=== PATIENT | male | born 1970 | race Caucasian/White ===

== ENCOUNTER → 2016-11-16 | Outpatient (CLI) | payer OTHER ==
[2016-11-16 17:06] LABS: Bilirubin, Delta 0.4 mg/dL (0.0-0.2); Total Bilirubin 0.6 mg/dL (0.2-1.3); Total Protein 6.7 g/dL (6.3-8.2)
[2016-11-16 17:11] LABS: Basophils % (A) 0 %; CH 33.4; CHCM 32.3; Eosinophils # (A) 0.7 k/uL (0-0.7); Eosinophils % (A) 8 %; HCT 44.2 % (39.0-53.0); HDW 2.24; Luc # (Auto) 0.18; Luc % (Auto) 2; Lymphocytes # (A) 1.6 k/uL (1.0-4.8); Lymphocytes % (A) 18 %; MCH 33.1 pg (25.0-35.0); MCHC 31.8 g/dL (31.0-37.0); MCV 104.1 fL (80.0-100.0); Macrocytosis Slight; Mean Platelet Volume 7.1; Monocytes # (A) 0.4 k/uL (0-1.0); Monocytes % (A) 4 %; Neutrophils # (A) 6.1 k/uL (1.3-7.7); Neutrophils % (A) 68 %; RBC 4.24 m/uL (4.30-5.90); RDW 14.4 % (11.5-15.5); WBC 8.9 k/uL (3.8-10.6); WBC (Perox) 8.95
== END | disposition home or self-care (01) ==
LOC: LABWHC1 16:33
PROVIDERS: ATTEND Psychiatry & Neurology Psychiatry
DX: F32.9 Major depressive disorder, single episode, unspecified (principal)
CPT/HCPCS: 36415; 80076; 80164; 85025

== ENCOUNTER → 2016-12-07 | Outpatient (CLI) | payer OTHER | END | disposition home or self-care (01) | LOC: LABWHC1 13:04 | PROVIDERS: ATTEND Psychiatry & Neurology Psychiatry | DX: F41.9 Anxiety disorder, unspecified (principal); F31.9 Bipolar disorder, unspecified | CPT/HCPCS: 36415; 80164 ==

== ENCOUNTER → 2018-01-06 | Outpatient (CLI) | payer OTHER ==
--- NOTE | 2018-01-06 09:52 | MR ---
EXAMINATION TYPE: MR lumbar spine wo con DATE OF EXAM: 01/06/2018 COMPARISON: NONE HISTORY: 47-year-old male with low back pain TECHNIQUE: Multiplanar, multisequence images of the lumbar spine were acquired. Findings: Vertebral body heights are preserved and alignment is maintained. Very mild disc desiccation throughout the lumbar spine. Anterior endplate spondylosis is present with mild fatty Modic type II endplate change anteriorly at L2-L3 and L3-L4. No suspicious bone marrow replacement. Conus medullaris is normal. No prevertebral or paravertebral soft tissue abnormality seen. Facet degenerative change lower lumbar spine and mild ligamentum flavum thickening. In addition, there is a component of mild congenital spinal canal stenosis in the lower lumbar spine with AP canal dimension of 1.2 cm. From T12 through L3 levels, no spinal canal or foraminal stenosis. At L3-L4, minimal disc bulging and mild facet degenerative change. No significant spinal canal or william roforaminal stenosis. At L4-L5, mild disc bulging, ligamentum flavum thickening, and mild facet degenerative change right o verall mild congenital spinal canal narrowing without significant neuroforaminal stenosis. At L5-S1, there is diffuse disc bulge with facet arthropathy and ligamentum flavum thickening. Disc m aterial closely approaches and may abut the traversing S1 nerve roots on both sides. Changes result i n mild bilateral neuroforaminal stenosis without significant spinal canal stenosis. IMPRESSION: 1. A component of mild congenital spinal canal stenosis in the lower lumbar spine. There is mild dege nerative disc disease, mild facet arthropathy, and mild ligamentum flavum thickening without canal co mpromise. 2. Disc material at L5-S1 closely approaches and may abut the traversing S1 nerve roots on both sides . 3. Mild bilateral neuroforaminal stenosis at this level.
== END | disposition home or self-care (01) ==
LOC: RADMRIMAIN 07:30
DX: M99.73 Connective tissue and disc stenosis of intervertebral foramina of lumbar region (principal); M51.16 Intervertebral disc disorders with radiculopathy, lumbar region; M46.96 Unspecified inflammatory spondylopathy, lumbar region; M24.28 Disorder of ligament, vertebrae; Q76.49 Other congenital malformations of spine, not associated with scoliosis
CPT/HCPCS: 72148

== ENCOUNTER → 2018-02-08 | Outpatient (CLI) | payer OTHER ==
--- NOTE | 2018-02-08 14:18 | XR ---
EXAMINATION TYPE: XR chest 2V DATE OF EXAM: 02/08/2018 COMPARISON: Prior chest x-ray 03/03/2016 HISTORY: Shortness of breath and cough TECHNIQUE: Frontal and lateral views of the chest are obtained. FINDINGS: There is no focal air space opacity, pleural effusion, or pneumothorax seen. The cardiac silhouette size is within normal limits. Interstitium is mildly prominent. There may be a spinal curv ature. The osseous structures are intact. IMPRESSION: Findings suggest interstitial lung disease. Consider high-resolution chest CT, pulmonary consult.
== END | disposition home or self-care (01) ==
LOC: RADXRMAIN 11:18
PROVIDERS: ATTEND Internal Medicine
DX: R06.02 Shortness of breath (principal)
CPT/HCPCS: 71046

== ENCOUNTER → 2018-03-24 | Outpatient (CLI) | payer OTHER ==
[2018-03-24 14:51] LABS: Blood Urea Nitrogen 10 mg/dL (9-20)
--- NOTE | 2018-03-24 15:28 | CT ---
EXAMINATION TYPE: CT chest w con DATE OF EXAM: 03/24/2018 COMPARISON: NONE HISTORY: Patient complains of difficulty breathing. New diagnosis of COPD. CT DLP: 436.9 mGycm Automated exposure control for dose reduction was used. CONTRAST: CT scan of the chest is performed with IV Contrast, patient injected with 100 mL of Isovue 300. FINDINGS: LUNGS: Moderate to severe upper lobe emphysematous change right greater than left. No evidence for in filtrate. No mass or nodule seen. No pleural effusion identified. MEDIASTINUM: There are no greater than 1 cm hilar or mediastinal lymph nodes. No pericardial effusi on is seen. Thoracic aorta is of normal caliber. The heart is not enlarged. Cystic structure noted a djacent to the right heart border measuring 5.0 x 2.1 cm felt to reflect a pericardial cyst UPPER ABDOMEN: There is evidence of hepatic steatosis. OTHER: No additional significant abnormality is seen. IMPRESSION: 1. Moderate to severe centrilobular emphysema upper lobes right greater than left. 2. Pericardial cyst.
== END | disposition home or self-care (01) ==
LOC: RADCTMAIN 14:17
PROVIDERS: ATTEND Internal Medicine Critical Care Medicine
DX: J43.9 Emphysema, unspecified (principal); I31.8 Other specified diseases of pericardium
CPT/HCPCS: 82565; 84520; 71260; 36415; Q9967

== ENCOUNTER → 2018-07-07 | Outpatient (CLI) | payer OTHER ==
--- NOTE | 2018-07-08 11:01 | MR ---
EXAMINATION TYPE: MR lumbar spine wo con DATE OF EXAM: 07/08/2018 COMPARISON: 01/06/2018 HISTORY: Spondylolisthesis lumbar region TECHNIQUE: Multiplanar, multisequence images of the lumbar spine were acquired. L1-L2: Normal disc appearance without desiccation. No herniation, protrusion or disc bulging. Yvrose sameer are patent bilaterally. L2-L3: Normal disc appearance without desiccation. No herniation, protrusion or disc bulging. Yvrose sameer are patent bilaterally. L3-L4: Minimal posterior disc bulge causes only slight anterior mass effect on the thecal sac. No sig nificant foraminal encroachment. Mild facet arthropathy. L4-L5:Mild disc bulging is present with minimal anterior mass effect on the thecal sac. No significan t foraminal encroachment. Ligamentum flavum thickening is noted. L5-S1: Small posterior disc herniation is present contacting the anterior thecal sac. Circumferential extension of endplate disc complex encroaches on the foramina bilaterally. No significant central st enosis. Mild facet arthropathy. Similar appearance. Lumbar segments are intact. No paraspinal masses are identified. Conus medullaris has a normal appe arance. There is a mild spinal curvature, minimal retrolisthesis L5-S1. There is multilevel spondylos is with endplate discogenic marrow signal change as on prior exam. Short pedicles again noted as on p rior. IMPRESSION: Mild degenerative disc disease, facet arthropathy. Findings similar to prior exam. Congenital spinal canal narrowing. Additional findings above.
== END | disposition home or self-care (01) ==
LOC: RADMRIMAIN 21:00
PROVIDERS: ATTEND Neurological Surgery
DX: M48.061 Spinal stenosis, lumbar region without neurogenic claudication (principal); M51.36 Other intervertebral disc degeneration, lumbar region; M47.816 Spondylosis without myelopathy or radiculopathy, lumbar region; M46.86 Other specified inflammatory spondylopathies, lumbar region
CPT/HCPCS: 72148

== ENCOUNTER → 2018-07-08 | Outpatient (CLI) | payer OTHER ==
--- NOTE | 2018-07-08 15:14 | XR ---
Lumbar spine flexion and extension views HISTORY: Spondylosis 7 views of the lumbar spine Correlation to prior exam 04/04/2014, MR 07/07/2018 Suspect a rudimentary rib at L1 on the left. There is a spinal curvature. Multilevel spondylosis is p resent. No evident spondylolysis area loss of disc height L5-S1. Sclerosis in the posterior elements compatible with facet arthropathy. Minimal retrolisthesis L3 is a stable finding and does not change on flexion and extension views. IMPRESSION: Degenerative disc disease and facet arthropathy, see report of lumbar MRI. No evident sig nificant change in the listhesis on flexion and extension views.
== END | disposition home or self-care (01) ==
LOC: RADXRMAIN 14:15
PROVIDERS: ATTEND Neurological Surgery
DX: M51.36 Other intervertebral disc degeneration, lumbar region (principal); M46.96 Unspecified inflammatory spondylopathy, lumbar region
CPT/HCPCS: 72114

== ENCOUNTER → 2018-10-28 | Outpatient (CLI) | payer OTHER ==
--- NOTE | 2018-10-28 15:58 | XR ---
Lumbar spine with flexion and extension HISTORY: Spondylolisthesis, right-sided pain 7 views of the spine correlated to prior exam 07/08/2018 Exam is stable. There is mild spinal curvature. No evident spondylolysis. Multilevel spondylosis is p resent. Loss of disc height present L5-S1, L3-4. Sclerosis in the posterior elements of the lower lum bar spine compatible with facet arthropathy. Minimal retrolisthesis grade 1 L3-4 is stable measuring 4 mm. IMPRESSION: Stable retrolisthesis L3-4. Degenerative disc disease and facet arthropathy.
== END | disposition home or self-care (01) ==
LOC: RADXRMAIN 14:50
PROVIDERS: ATTEND Neurological Surgery
DX: M43.16 Spondylolisthesis, lumbar region (principal); M51.36 Other intervertebral disc degeneration, lumbar region; M46.96 Unspecified inflammatory spondylopathy, lumbar region
CPT/HCPCS: 72114

== ENCOUNTER → 2019-03-03 | Outpatient (CLI) | payer OTHER ==
--- NOTE | 2019-03-03 13:59 | XR ---
EXAMINATION TYPE: XR chest 2V DATE OF EXAM: 03/03/2019 COMPARISON: Prior chest x-ray 02/08/2018 HISTORY: Cough TECHNIQUE: Frontal and lateral views of the chest are obtained. FINDINGS: There is no focal air space opacity, pleural effusion, or pneumothorax seen. The cardiac silhouette size is within normal limits. Lucency in the right upper lobe suggestive of bullous emphys ematous change. Linear stranding is present within the lungs bilaterally. Aorta is dense. Patient is rotated. There may be an underlying scoliosis. The osseous structures are intact. IMPRESSION: No acute cardiopulmonary process. Emphysema
== END ==
LOC: RADXRMAIN 12:24
PROVIDERS: ATTEND Internal Medicine
DX: J43.9 Emphysema, unspecified (principal)
CPT/HCPCS: 71046

== ENCOUNTER → 2019-07-24 | Outpatient (CLI) | payer OTHER ==
--- NOTE | 2019-07-24 14:49 | CT ---
EXAMINATION TYPE: CT brain wo con DATE OF EXAM: 07/24/2019 COMPARISON: None INDICATION: Syncopal episodes x 2 months. DLP: 995.5 mGycm, Automated exposure control for dose reduction was used. CONTRAST: None CT of the brain is performed utilizing 3 mm thick sections through the posterior fossa and 3 mm thick sections through the remaining calvarium. Study is performed within 24 hours of arrival to the hosp [facility]. No abnormal hyperdensity is present to suggest an acute intracranial hemorrhage. No mass lesion is evident. No acute infarcts are evident. Ventricles and sulci are appropriate for the patient age. There is prominence of the foramen magnum. A small arachnoid cyst may be present posteriorly Paranasal sinuses and mastoid air cells within the [id number]-gm-osaf are clear. IMPRESSIONS: 1. No acute intracranial process
== END | disposition home or self-care (01) ==
LOC: RADCTMAIN 12:23
PROVIDERS: ATTEND Internal Medicine Critical Care Medicine
DX: R55 Syncope and collapse (principal)
CPT/HCPCS: 70450

== ENCOUNTER 2022-05-05 07:13 | Day surgery (SDC) | payer MEDICARE, OTHER ==
[2022-04-30 14:12] VITALS: BMI 33.5
[~2022-05-05 07:13] MED LIST: LACTATED RINGERS 1,000 ML IV SCH; LIDOCAINE 1% (10MG/ML) FOR IV START INTRADERMA PRN
[2022-05-05 07:37] VITALS: TEMP 98.3
[2022-05-05 07:49] LABS: Glucose,Whole Blood 156 mg/dL (70-110)
[2022-05-05] MEDS ORDERED: PROPOFOL 10 MG/ML 20 ML VIAL IV ONE (08:02)
[2022-05-05] MEDS ORDERED: LIDOCAINE 2% INJ 20 MG/ML (2 ML VIAL) ONE (08:02)
--- NOTE | 2022-05-05 08:06 | P.GSHP ---
History of Present Illness H&P Date: 05/05/22 Chief Complaint: gerd 51-year-old male here today for upper endoscopy. Patient with complaints of progressive dysphagia over the last few years. Chronic history of reflux. Takes Pepcid daily. He has not had an EGD before. Past Medical History Past Medical History: COPD, Diabetes Mellitus, GERD/Reflux, Hyperlipidemia, Hypertension, Musculoskeletal Disorder Additional Past Medical History / Comment(s): SCOLIOSIS, HERNIATED DISC, BACK PAIN, STATES OCCASIONAL IRREGULAR HEART BEAT FROM SEROQUEL. History of Any Multi-Drug Resistant Organisms: None Reported Past Surgical History: Hernia Repair Additional Past Surgical History / Comment(s): colonoscopy, right inguinal hernia. Past Anesthesia/Blood Transfusion Reactions: No Reported Reaction Additional Past Anesthesia/Blood Transfusion Reaction / Comment(s): hard to arouse Past Psychological History: Anxiety, Depression Smoking Status: Current every day smoker, Heavy tobacco smoker Past Alcohol Use History: None Reported Additional Past Alcohol Use History / Comment(s): SMOKES 1 1/2 PPD, STARTED SMOKING AGE 12. Past Drug Use History: None Reported - Past Family History Mother Family Medical History: No Reported History Medications and Allergies Home Medications Medication Instructions Recorded Confirmed Type Meloxicam [Mobic] 7.5 mg PO HS 01/02/15 05/05/22 History Hydrocodone/Acetaminophen [[place] 1 tab PO QID PRN 05/06/15 05/05/22 History 10-325] Gabapentin [Neurontin] 800 mg PO TID 03/15/16 05/05/22 History ALPRAZolam [Xanax] 0.25 mg PO BID PRN 04/30/22 05/05/22 History Albuterol Inhaler [Ventolin Hfa 1 puff INHALATION DIRECTED PRN 04/30/22 05/05/22 History Inhaler] Cyclobenzaprine [Flexeril] 10 mg PO HS 04/30/22 05/05/22 History Famotidine [Pepcid] 20 mg PO BID 04/30/22 05/05/22 History Fenofibrate Nanocrystallized 145 mg PO DAILY 04/30/22 05/05/22 History [Fenofibrate] Fluticasone/Umeclidin/Vilanter 1 inhalation INHALATION DAILY 04/30/22 05/05/22 History [Trelegy Ellipta 100-62.5-25] Levothyroxine Sodium [Synthroid] 50 mcg PO DAILY 04/30/22 05/05/22 History Mirtazapine 45 mg PO HS 04/30/22 05/05/22 History Multivitamins, Thera [Multivitamin 1 tab PO DAILY 04/30/22 05/05/22 History (formulary)] QUEtiapine FUMARATE [SEROquel] 200 mg PO HS 04/30/22 05/05/22 History Rosuvastatin Calcium [Crestor] 5 mg PO HS 04/30/22 05/05/22 History lisinopriL [Zestril] 20 mg PO DAILY 04/30/22 05/05/22 History metFORMIN HCL 500 mg PO DAILY 04/30/22 05/05/22 History Allergies Allergy/AdvReac Type Severity Reaction Status Date / Time Penicillins AdvReac Unknown Verified 05/05/22 07:31 Childhood Surgical - Exam Vital Signs Temp Pulse Resp BP Pulse Ox 98.3 F 95 18 117/75 92 L 05/05/22 07:35 05/05/22 07:35 05/05/22 07:35 05/05/22 07:35 05/05/22 07:35 Physical exam: General: Well-developed, well-nourished HEENT: Normocephalic, sclerae nonicteric Abdomen: Nontender, nondistended Extremities: No edema Neuro: Alert and oriented Results - Labs Abnormal Lab Results - Last 24 Hours (Table) 05/05/22 Range/Units 07:48 POC Glucose (mg/dL) 156 H (70-110) mg/dL Assessment and Plan (1) GERD (gastroesophageal reflux disease) Narrative/Plan: Will proceed with upper endoscopy at this time with possible dilation. Risks of bleeding, infection, perforation reviewed. He understands and wishes to proceed. Current Visit: Yes Status: Acute Code(s): K21.9 - GASTRO-ESOPHAGEAL REFLUX DISEASE WITHOUT ESOPHAGITIS SNOMED Code(s): 342320811
--- NOTE | 2022-05-05 08:20 | P.PCN ---
Date of Procedure: 05/05/22 Procedure(s) Performed: Preoperative Dx: GERD, dysphagia Postoperative Dx: Mild distal esophagitis, gastritis Procedure: EGD with Bx and dilation to 15 mm Anesthesia: Sedation Endoscopist: Dr. Kohler Specimens: Antrum, distal esophagus Endoscopic Procedure: The patient was on the endoscopy table in the left decubitus position. The Olympus gastroscope was inserted into the oropharynx and passed under direct visualization to the region of the third portion of the duodenum. From that point the scope was slowly withdrawn inspecting all surfaces carefully. There were no neoplastic inflammatory or polypoid lesions throughout the duodenum. The pylorus was widely patent. The stomach was carefully inspected. There was mild gastritis present. A biopsy of the antrum took place to rule out H. pylori. Retroflexion revealed a normal hiatus. The esophagus was then carefully examined. The patient had a single linear erosion at the distal esophagus measuring 2 cm in length. A biopsy was taken. Prior to that however we did decide to dilate using a 12-15 mm balloon. The balloon was inflated to 12, 13.5, and 15 mm sequentially. The 15 mm balloon did not seem to be very tight. There were no mucosal tears. The remainder the esophagus was examined and appeared normal. The patient was then taken to the recovery room in stable condition per anesthesia guidelines. Recommendations: Await biopsy results. Begin proton pump inhibitor. Follow-up if symptoms persist.
[2022-05-05 08:28] VITALS: RESP 16
[2022-05-05 09:04] VITALS: BP 103/65; PULSE 69
== END 2022-05-05 09:06 | disposition home or self-care (01) ==
LOC: ORWHC2ENDO 07:13
PROVIDERS: ATTEND Surgery
DX: K21.00 Gastro-esophageal reflux disease with esophagitis, without bleeding (principal); K29.50 Unspecified chronic gastritis without bleeding; I10 Essential (primary) hypertension; E11.69 Type 2 diabetes mellitus with other specified complication; E78.5 Hyperlipidemia, unspecified; J44.9 Chronic obstructive pulmonary disease, unspecified; F17.200 Nicotine dependence, unspecified, uncomplicated; E66.9 Obesity, unspecified; Z68.33 Body mass index [BMI] 33.0-33.9, adult; Z88.0 Allergy status to penicillin; Z79.84 Long term (current) use of oral hypoglycemic drugs; Z79.890 Hormone replacement therapy; Z79.899 Other long term (current) drug therapy; F41.9 Anxiety disorder, unspecified; F32.A Depression, unspecified; Z79.1 Long term (current) use of non-steroidal anti-inflammatories (NSAID); Z79.51 Long term (current) use of inhaled steroids
CPT/HCPCS: 88305; 88312; 43239; 43249; J2704; J2001; C1726

== ENCOUNTER → 2022-10-18 | Outpatient (CLI) | payer MEDICARE, OTHER ==
--- NOTE | 2022-10-18 11:03 | MR ---
EXAMINATION TYPE: MR lumbar spine wo con DATE OF EXAM: 10/18/2022 9:21 AM COMPARISON: 07/07/2018. CLINICAL INDICATION:Male, 52 years old with history of [id number]; TECHNIQUE: Multi planar, multi sequence imaging was performed utilizing: T1-weighted, T2-weighted, a nd turbo inversion recovery imaging of the lumbar spine. IV Contrast: None. FINDINGS: Alignment: The lumbar vertebral bodies have preserved heights and alignment. Cord: The conus medullaris and the distal spinal cord appear unremarkable with regards to their signa l intensity and morphology. Bones/Discs: Scattered osteophyte changes throughout the lower lumbar spine. Disc space narrowing at L5-S1. Multilevel degenerative disc disease is noted and most pronounced at the L3-L5. Disc desiccati on at L5-S1. L1-L2: No evidence of significant spinal canal stenosis or neural foraminal stenosis. L2-L3: No evidence of significant spinal canal stenosis or neural foraminal stenosis. L3-L4: No evidence of significant spinal canal stenosis or neural foraminal stenosis. L4-L5: No evidence of significant spinal canal stenosis or neural foraminal stenosis. L5-S1: Disc bulge and facet joint arthropathy result in mild spinal canal and moderate right and mild left neural foraminal stenosis. Other findings: None. IMPRESSION: 1. No definitive evidence of disc herniation or significant spinal canal stenosis. 2. Multilevel disc degeneration with associated osteoarthritic changes worse at L5-S1 with moderate right neural foraminal stenosis. No significant change from prior 2019.
== END | disposition home or self-care (01) ==
LOC: RADMRIMAIN 09:45
PROVIDERS: ATTEND Internal Medicine
DX: M51.37 Other intervertebral disc degeneration, lumbosacral region (principal); M47.817 Spondylosis without myelopathy or radiculopathy, lumbosacral region; M48.061 Spinal stenosis, lumbar region without neurogenic claudication; M99.73 Connective tissue and disc stenosis of intervertebral foramina of lumbar region
CPT/HCPCS: 72148

== ENCOUNTER 2023-03-02 12:48 | Day surgery (SDC) | payer MEDICARE, OTHER ==
[2023-03-02] MEDS ORDERED: ALPRAZolam 0.5 MG TAB PO STA (13:47)
[2023-03-02 13:50] VITALS: PULSE 65; RESP 18; TEMP 97.9
--- NOTE | 2023-03-02 15:47 | US ---
ULTRASOUND GUIDED FNA BILATERAL PAROTID BIOPSY: CLINICAL HISTORY: Bilateral abnormal MRI parotid glands FINDINGS: The procedure was explained to the patient. The risks, complications, benefits and alternatives were discussed and any questions were answered. Informed consent was obtained. Patient was placed supin e on the ultrasound table and prepped and draped in the usual sterile fashion. Utilizing a 25 gauge needle, single pass was made into the right parotid nodule which appear to represent a simple cyst. A pproximate 1 to 2 cc of serous fluid was aspirated with no residual nodule. 2 passes were made into the left parotid nodule with aspiration of approximately 1 cc of thick liquid substance with the near-complete resolution of the nodule. Sample sent to pathology for analysis. Patient was stable throughout the procedure. Pathology is pending. All elements of maximal barrier technique were utilized. IMPRESSION: 1. Successful ultrasound guided FNA bilateral parotid. Note is made to lesion on the right appear to be simple cyst and a more complicated cyst was noted on the left with pathology pending.
[2023-03-02 16:06] VITALS: BP 112/70
== END 2023-03-02 15:00 | disposition home or self-care (01) ==
LOC: RADPROMAIN 12:48
PROVIDERS: ATTEND Otolaryngology
DX: K11.8 Other diseases of salivary glands (principal); K11.6 Mucocele of salivary gland
CPT/HCPCS: 10005; 10006; 88173; 88305

== ENCOUNTER → 2023-03-19 | Outpatient (CLI) | payer MEDICARE, OTHER ==
--- NOTE | 2023-03-20 12:03 | PE ---
EXAMINATION TYPE: PET CT fusion skull to thigh DATE OF EXAM: 03/19/2023 COMPARISON: Low-dose lung screening CT January 11, 2023 HISTORY: Solitary pulmonary nodule, abnormal CT. TECHNIQUE: Following the intravenous administration of 12.3 mCi of F-18 FDG, whole body images are p erformed from the skull base to the midthigh. Images are reviewed on the computer in the coronal, ax ial, and sagittal planes. Reconstructed rotating images are created on independent workstation and r eviewed on the computer. A localization and attenuation correction CT is performed in conjunction w ith the PET scan. Blood glucose level equals 140 SCAN: Initial Scan FINDINGS: SKULL BASE AND NECK: Focus of radiotracer extravasation overlying the anterior right upper extremity axial image 33. No areas of abnormal increased radiotracer uptake. CHEST, MEDIASTINUM, AND HILAR REGION: Moderate to advanced underlying emphysematous changes are redem onstrated. There is masslike consolidation with adjacent thickened linear scarring posterior right up per lobe redemonstrated with masslike consolidation measuring 4.7 x 2.5 cm axial image [address] Some mild hypermetabolic uptake is noted. Max SUV is 3.51 axial image 77. There is 1.9 x 1. 6 cm focal nodule or nodular scarring inferior to this axial image 88, max SUV is 3.08. No additional areas of abnormal hypermetabolic uptake in left lung or the mediastinum or remainder of the thorax. Slightly enlarged right tracheobronchial lymph node axial image 84 shows no abnormal hyp ermetabolic uptake. ABDOMEN AND PELVIS: No hypermetabolic adrenal masses. Normal excretion. Mild uptake left lateral thig h muscle could reflect inflammatory etiology. No suspicious abnormal hypermetabolic uptake. OSSEOUS STRUCTURES: No abnormal hypermetabolic uptake OTHER CT: There is a circumscribed low dense 5.0 x 1.9 cm lesion abutting the right pericardium presu med benign cystic lesion redemonstrated. Vacuum disc phenomenon lumbosacral junction. IMPRESSION: Post inflammatory findings favored but neoplasm cannot be excluded. At minimum short-term CT and/or PET CT follow-up in 3-6 months time is advised to reassess if more aggressive workup and/o r treatment is not undertaken.
== END | disposition home or self-care (01) ==
LOC: RADPETMAIN 06:27
PROVIDERS: ATTEND Internal Medicine Critical Care Medicine
DX: R91.1 Solitary pulmonary nodule (principal)
CPT/HCPCS: 78815; A9552

== ENCOUNTER 2023-04-22 23:59 | Observation (INO) | payer MEDICARE, OTHER ==
[2023-04-23 01:31] LABS: ALT 16 U/L (4-49); AST 21 U/L (17-59); African American GFR (CKD) 62 (>60 ml/min/1.73 sqM); Albumin 4.1 g/dL (3.5-5.0); Alkaline Phosphatase 50 U/L (38-126); Anion Gap 12 mmol/L; Blood Urea Nitrogen 21 mg/dL (9-20); Calcium 9.1 mg/dL (8.4-10.2); Carbon Dioxide 20 mmol/L (22-30); Chloride 102 mmol/L (98-107); Glucose 186 mg/dL (74-99); Non-African American GFR(CKD) 54 (>60 ml/min/1.73 sqM); Potassium 4.9 mmol/L (3.5-5.1); Sodium 134 mmol/L (137-145); Total Bilirubin 0.5 mg/dL (0.2-1.3); Total Protein 6.8 g/dL (6.3-8.2)
[2023-04-23 01:34] LABS: Anisocytosis Slight; Basophils % (A) 0 %; Eosinophils # (A) 0.3 k/uL (0-0.7); Eosinophils % (A) 4 %; HCT 34.1 % (39.0-53.0); HGB 11.4 gm/dL (13.0-17.5); Lymphocytes # (A) 1.3 k/uL (1.0-4.8); Lymphocytes % (A) 19 %; MCH 33.6 pg (25.0-35.0); MCHC 33.4 g/dL (31.0-37.0); MCV 100.4 fL (80.0-100.0); Macrocytosis Slight; Mean Platelet Volume 7.7; Monocytes # (A) 0.4 k/uL (0-1.0); Monocytes % (A) 6 %; Neutrophils % (A) 70 %; Platelet Count 379 k/uL (150-450); RDW 16.3 % (11.5-15.5); WBC 7.2 k/uL (3.8-10.6)
[2023-04-23 01:48] LABS: Partial Thromboplastin Time 26.2 sec (22.0-30.0); Prothrombin Time 10.2 sec (9.0-12.0)
--- NOTE | 2023-04-23 02:14 | XR ---
EXAM: XR Chest, 2 Views CLINICAL HISTORY: ITS.REASON XR Reason: dysrhythmia TECHNIQUE: Frontal and lateral views of the chest. COMPARISON: 07/25/2020 FINDINGS: Lungs: Emphysema with chronic scarring in the right lung apex. Pleural space: Unremarkable. No pneumothorax. No pleural effusions. Heart: Unremarkable. No cardiomegaly. Mediastinum: Unremarkable. Bones/joints: No acute osseous abnormalities. IMPRESSION: Emphysema with chronic scarring in the right lung apex.
[2023-04-23] MEDS ORDERED: methylPREDNISolone SOD SUCCI 125 MG/2 ML VIAL IV STA (02:39)
[2023-04-23] MEDS ORDERED: IPRATROPIUM-ALBUTEROL 3 ML NEB INHALATION STA (02:39)
--- NOTE | 2023-04-23 03:42 | CT ---
EXAM: CT Angiography Chest With Intravenous Contrast CLINICAL HISTORY: ITS.REASON CT Reason: chest pain, tachycardia, exertional dyspnea TECHNIQUE: Axial computed tomographic angiography images of the chest with intravenous contrast. CTDI is 46.58 mGy and DLP is 959.3 mGy-cm. This CT exam was performed using one or more of the following dose reduction techniques: automated exposure control, adjustment of the mA and/or kV according to patient size, and/or use of iterative reconstruction technique. MIP reconstructed images were created and reviewed. COMPARISON: No relevant prior studies available. FINDINGS: Pulmonary arteries: Unremarkable. No CT evidence of pulmonary embolism. Aorta: No acute findings. No thoracic aortic aneurysm. Lungs: 4.5 cm cavitary mass within the posterior right upper lobe. Severe centrilobular emphysema. Pleural space: Unremarkable. No significant effusion. No pneumothorax. Heart: Unremarkable. No cardiomegaly. No significant pericardial effusion. No evidence of RV dysfunction. Mediastinum: Mediastinal lymphadenopathy is present as follows: Left intralobar-1.2 cm, right hilar-2.2 cm, left intralobar-1.1 cm. Bones/joints: No acute fracture. No dislocation. Soft tissues: Unremarkable. Lymph nodes: Unremarkable. No enlarged lymph nodes. IMPRESSION: 1. No CT evidence of pulmonary embolism. 2. 4.5 cm cavitary mass within the posterior right upper lobe. 3. Mild mediastinal lymphadenopathy.
--- NOTE | 2023-04-23 04:15 | ED ---
Arrhythmia/Palpitations HPI - General Chief Complaint: Arrhythmia/Palpitations Stated Complaint: Rapid Heart Rate, Difficulty Breathing Source: patient Mode of arrival: ambulatory Limitations: no limitations - History of Present Illness Initial Comments: 52-year-old male with past medical history of COPD, diabetes, hypertension who presents to the emergency department with rapid heart rate and shortness of breath. States that for the past couple of days he has had some chest pain. Describes it as a pressure sensation across the anterior part of his chest. He has been increasingly short of breath and has been wheezing. States that anytime he exerts himself he becomes short of breath. Denies cough. No fevers. No sick contacts. He is under the care of Dr. Chaves. States he's been worked up for possible cancer. He denies active chest pain. No lower externally swelling. No history of DVT or PE. Has never had a cardiac workup. No history of heart failure. He does not take any antibiotics or steroids. No other alleviating, precipitating or modifying factors - Related Data Home Medications Medication Instructions Recorded Confirmed Meloxicam [Mobic] 7.5 mg PO HS 01/02/15 04/23/23 Hydrocodone/Acetaminophen [[place] 1 tab PO QID PRN 05/06/15 04/23/23 10-325] Gabapentin [Neurontin] 800 mg PO TID 03/15/16 04/23/23 ALPRAZolam [Xanax] 0.25 mg PO BID PRN 04/30/22 04/23/23 Albuterol Inhaler [Ventolin Hfa 1 puff INHALATION RT-Q4H PRN 04/30/22 04/23/23 Inhaler] Cyclobenzaprine [Flexeril] 10 mg PO HS 04/30/22 04/23/23 Famotidine [Pepcid] 20 mg PO BID 04/30/22 04/23/23 Fenofibrate Nanocrystallized 145 mg PO DAILY 04/30/22 04/23/23 [Fenofibrate] Fluticasone/Umeclidin/Vilanter 1 puff INHALATION RT-DAILY 04/30/22 04/23/23 [Trelegy Ellipta 100-62.5-25] Levothyroxine Sodium [Synthroid] 50 mcg PO DAILY 04/30/22 04/23/23 Mirtazapine 45 mg PO HS 04/30/22 04/23/23 Multivitamins, Thera [Multivitamin 1 tab PO DAILY 04/30/22 04/23/23 (formulary)] QUEtiapine FUMARATE [SEROquel] 200 mg PO HS 04/30/22 04/23/23 Rosuvastatin Calcium [Crestor] 5 mg PO HS 04/30/22 04/23/23 lisinopriL [Zestril] 20 mg PO DAILY 04/30/22 04/23/23 metFORMIN HCL 500 mg PO DAILY 04/30/22 04/23/23 Pioglitazone [Actos] 30 mg PO DAILY 02/18/23 04/23/23 Ergocalciferol [Vitamin D2 (1250 1,250 mcg PO ABLERTO 04/23/23 04/23/23 Mcg = 13462 Iu)] Mupirocin 2% Oint [Bactroban 2% 1 applic TOPICAL DAILY 04/23/23 04/23/23 Oint] Previous Rx's Medication Instructions Recorded Omeprazole [PriLOSEC] 40 mg PO -MARILYNKFST #90 cap 05/05/22 Allergies Allergy/AdvReac Type Severity Reaction Status Date / Time Penicillins AdvReac Unknown Verified 04/23/23 07:07 Childhood Review of Systems ROS Statement: Those systems with pertinent positive or pertinent negative responses have been documented in the HPI. ROS Other: All systems not noted in ROS Statement are negative. Past Medical History Past Medical History: COPD, Diabetes Mellitus, GERD/Reflux, Hyperlipidemia, Hypertension, Musculoskeletal Disorder Additional Past Medical History / Comment(s): SCOLIOSIS, HERNIATED DISC, BACK PAIN, STATES OCCASIONAL IRREGULAR HEART BEAT FROM SEROQUEL. History of Any Multi-Drug Resistant Organisms: None Reported Past Surgical History: Hernia Repair Additional Past Surgical History / Comment(s): colonoscopy, right inguinal herni a. Past Anesthesia/Blood Transfusion Reactions: No Reported Reaction Additional Past Anesthesia/Blood Transfusion Reaction / Comment(s): hard to arouse Past Psychological History: Anxiety, Depression Smoking Status: Current every day smoker, Heavy tobacco smoker Past Alcohol Use History: None Reported Past Drug Use History: None Reported - Past Family History Mother Family Medical History: No Reported History General Exam Limitations: no limitations Course Vital Signs 04/23/23 04/23/23 04/23/23 00:01 01:17 03:06 Temperature 97.5 F L Pulse Rate 115 H 98 87 Respiratory 26 H 16 Rate Blood Pressure 122/75 115/64 O2 Sat by Pulse 96 95 Oximetry 04/23/23 04/23/23 04/23/23 03:14 04:00 06:28 Temperature 98.1 F Pulse Rate 88 86 78 Respiratory 16 16 Rate Blood Pressure 112/61 110/64 O2 Sat by Pulse 96 96 Oximetry Medical Decision Making - Medical Decision Making Was pt. sent in by a medical professional or institution (ABHIJIT Aguirre, REGULATORY PRODUCT MANAGER, urgent care, hospital, or group home...) When possible be specific @ -[No] Did you speak to anyone other than the patient for history (EMS, parent, family, police, friend...)? What history was obtained from this source @ -[No] Did you review nursing and triage notes (agree or disagree)? Why? @ -[I reviewed and agree with nursing and triage notes] Were old charts reviewed (outside hosp., previous admission, EMS record, old EKG, old radiological studies, urgent care reports/EKG's, group home records)? Report findings @ -[No old charts were reviewed] Differential Diagnosis (chest pain, altered mental status, abdominal pain women, abdominal pain men, vaginal bleeding, weakness, fever, dyspnea, syncope, headache, dizziness, GI bleed, back pain, seizure, CVA, palpatations, mental health, musculoskeletal)? @ -[not applicable] EKG interpreted by me (3pts min.). @ -Yes and demonstrates sinus tachycardia with a rate of 108. IL interval 127. QRS 98. QTC of 382. No acute ST segment elevations or depressions X-rays interpreted by me (1pt min.). @ -[None done] CT interpreted by me (1pt min.). @ -[None done] U/S interpreted by me (1pt. min.). @ -[None done] What testing was considered but not performed or refused? (CT, X-rays, U/S, labs)? Why? @ -[None] What meds were considered but not given or refused? Why? @ -[None] Did you discuss the management of the patient with other professionals (professionals i.e. ABHIJIT Aguirre, REGULATORY PRODUCT MANAGER, lab, RT, psych nurse, long term care social worker, cord tire builder, teacher, building drafting officer, cyanide case hardener)? Give summary @ -[No] Was smoking cessation discussed for >3mins.? @ -[No] Was critical care preformed (if so, how long)? @ -[No] Were there social determinants of health that impacted care today? How? (Homelessness, low income, unemployed, alcoholism, drug addiction, transportatio n, low edu. Level, literacy, decrease access to med. care, [place] [facility], rehab)? @ -[No] Was there de-escalation of care discussed even if they declined (Discuss DNR or withdrawal of care, Hospice)? DNR status @ -[No] What co-morbidities impacted this encounter? (DM, HTN, Smoking, COPD, CAD, Cancer, CVA, ARF, Chemo, Hep., AIDS, mental health diagnosis, sleep apnea, morbid obesity)? @ -[None] Was patient admitted / discharged? Hospital course, mention meds given and route, prescriptions, significant lab abnormalities, going to OR and other pertinent info. @ -Upon arrival patient is placed into room 2. A thorough history and physical exam was performed. IV access is established and laboratory studies are conducted. D-dimer is elevated at 0.65. Patient is diffusely wheezy and therefore given a breathing treatment. CT of the chest is performed which demonstrates a large spiculated mass measuring 4.5 cm. There is mediastinal lymphadenopathy. Results are discussed the patient. Did recommend admission for pulmonology and cardiology consultation. Patient was agreeable to this. Spoke with Dr. Dotson who agreed to admit the patient. Undiagnosed new problem with uncertain prognosis? @ -[No] Drug Therapy requiring intensive monitoring for toxicity (Heparin, Nitro, Insulin, Cardizem)? @ -[No] Were any procedures done? @ -[No] Diagnosis/symptom? @ -[default] Acute, or Chronic, or Acute on Chronic? @ -[default] Uncomplicated (without systemic symptoms) or Complicated (systemic symptoms)? @ -[default] Side effects of treatment? @ -[No] Exacerbation, Progression, or Severe Exacerbation? @ -[No] Poses a threat to life or bodily function? How? (Chest pain, USA, AL, pneumonia, PE, COPD, DKA, ARF, appy, cholecystitis, CVA, Diverticulitis, Homicidal, Suicidal, threat to staff... and all critical care pts) @ -[No] - Lab Data Result diagrams: 04/23/23 00:08 04/23/23 00:08 Lab Results 04/23/23 04/23/23 04/23/23 Range/Units 00:08 00:08 00:08 WBC 7.2 (3.8-10.6) k/uL RBC 3.40 L (4.30-5.90) m/uL Hgb 11.4 L (13.0-17.5) gm/dL Hct 34.1 L (39.0-53.0) % MCV 100.4 H (80.0-100.0) fL MCH 33.6 (25.0-35.0) pg MCHC 33.4 (31.0-37.0) g/dL RDW 16.3 H (11.5-15.5) % Plt Count 379 (150-450) k/uL MPV 7.7 Neutrophils % 70 % Lymphocytes % 19 % Monocytes % 6 % Eosinophils % 4 % Basophils % 0 % Neutrophils # 5.0 (1.3-7.7) k/uL Lymphocytes # 1.3 (1.0-4.8) k/uL Monocytes # 0.4 (0-1.0) k/uL Eosinophils # 0.3 (0-0.7) k/uL Basophils # 0.0 (0-0.2) k/uL Anisocytosis Slight Macrocytosis Slight PT 10.2 (9.0-12.0) sec INR 1.0 (<1.2) APTT 26.2 (22.0-30.0) sec D-Dimer 0.65 H (<0.60) mg/L FEU Sodium 134 L (137-145) mmol/L Potassium 4.9 (3.5-5.1) mmol/L Chloride 102 (98-107) mmol/L Carbon Dioxide 20 L (22-30) mmol/L Anion Gap 12 mmol/L BUN 21 H (9-20) mg/dL Creatinine 1.46 H (0.66-1.25) mg/dL Est GFR (CKD-EPI)AfAm 62 (>60 ml/min/1.73 sqM) Est GFR (CKD-EPI)NonAf 54 (>60 ml/min/1.73 sqM) Glucose 186 H (74-99) mg/dL Calcium 9.1 (8.4-10.2) mg/dL Magnesium 2.0 (1.6-2.3) mg/dL Total Bilirubin 0.5 (0.2-1.3) mg/dL AST 21 (17-59) U/L ALT 16 (4-49) U/L Alkaline Phosphatase 50 (38-126) U/L Troponin I (0.000-0.034) ng/mL NT-Pro-B Natriuret Pep pg/mL Total Protein 6.8 (6.3-8.2) g/dL Albumin 4.1 (3.5-5.0) g/dL TSH 0.907 (0.465-4.680) mIU/L 04/23/23 04/23/23 Range/Units 00:08 00:08 WBC (3.8-10.6) k/uL RBC (4.30-5.90) m/uL Hgb (13.0-17.5) gm/dL Hct (39.0-53.0) % MCV (80.0-100.0) fL MCH (25.0-35.0) pg MCHC (31.0-37.0) g/dL RDW (11.5-15.5) % Plt Count (150-450) k/uL MPV Neutrophils % % Lymphocytes % % Monocytes % % Eosinophils % % Basophils % % Neutrophils # (1.3-7.7) k/uL Lymphocytes # (1.0-4.8) k/uL Monocytes # (0-1.0) k/uL Eosinophils # (0-0.7) k/uL Basophils # (0-0.2) k/uL Anisocytosis Macrocytosis PT (9.0-12.0) sec INR (<1.2) APTT (22.0-30.0) sec D-Dimer (<0.60) mg/L FEU Sodium (137-145) mmol/L Potassium (3.5-5.1) mmol/L Chloride (98-107) mmol/L Carbon Dioxide (22-30) mmol/L Anion Gap mmol/L BUN (9-20) mg/dL Creatinine (0.66-1.25) mg/dL Est GFR (CKD-EPI)AfAm (>60 ml/min/1.73 sqM) Est GFR (CKD-EPI)NonAf (>60 ml/min/1.73 sqM) Glucose (74-99) mg/dL Calcium (8.4-10.2) mg/dL Magnesium (1.6-2.3) mg/dL Total Bilirubin (0.2-1.3) mg/dL AST (17-59) U/L ALT (4-49) U/L Alkaline Phosphatase (38-126) U/L Troponin I <0.012 (0.000-0.034) ng/mL NT-Pro-B Natriuret Pep <20 pg/mL Total Protein (6.3-8.2) g/dL Albumin (3.5-5.0) g/dL TSH (0.465-4.680) mIU/L Disposition Clinical Impression: Tachycardia, Chest pain, Shortness of breath, COPD exacerbation, Lung mass Disposition: ADMITTED IP TO THIS [facility] Condition: Fair Is patient prescribed a controlled substance at d/c from ED?: No Time of Disposition: 03:45 Decision to Admit Reason: Admit from EC Decision Date: 04/23/23 Decision Time: 03:45
[2023-04-23] MEDS ORDERED: NALOXONE 0.4 MG/ML 1 ML VIAL IV PRN (04:52)
[2023-04-23] MEDS ORDERED: DOBUTamine DRIP for NUC MED 500 MG in DEXTROSE/WATER 1 250ML.BAG IV PRN (07:44)
[2023-04-23] MEDS: IPRATROPIUM-ALBUTEROL 3 ML NEB INHALATION SCH ×5 (07:48→23:42)
[2023-04-23] MEDS: methylPREDNISolone SOD SUCCI 40 MG/ML 1 ML VIAL IV SCH ×2 (08:40→16:28)
[2023-04-23] MEDS ORDERED: ALPRAZolam 0.25 MG TAB PO PRN (08:59)
[2023-04-23] MEDS ORDERED: ALBUTEROL NEBULIZED 2.5 MG/3 ML INHALATION PRN (08:59)
[2023-04-23] MEDS ORDERED: FENOFIBRATE 160 MG TAB PO SCH (09:00)
--- NOTE | 2023-04-23 09:12 | P.CRDCN ---
History of Present Illness History of present illness: HISTORY OF PRESENT ILLNESS: This is a 52-year-old male with a past medical history significant for COPD, diabetes, hypertension, hyperlipidemia, anxiety, depression, nicotine dependence, and lung mass. Patient does not follow with a civil designer. We have been asked to see the patient in consultation for chest pain. Patient examined at the bedside. Patient presented to the hospital with a chief complaint of shortness of breath and chest pain. Patient states he has been having intermittent chest pain over the past few days. He describes the pain as a pressure type sensation. He denied any radiation of the pain. He also reports he has been feeling short of breath. He denies any previous history of coronary artery disease. * EKG reveals sinus tachycardia with a heart rate of 108. No signs of acute ischemia * Chest xray emphysema with chronic scarring in the right lung apex. * Chest CTA: No evidence for pulmonary embolism. 4.5 cm cavitary mass within the posterior right upper lobe. Mild mediastinal lymphadenopathy. * Laboratory data: WBC 7.2. Hemoglobin 11.4. Platelet count 379. D-dimer 0.65. Sodium 134. Potassium 4.9. BUN 21. Creatinine 1.46. Troponin negative 2. TSH 0.907. * Current home cardiac medications include lisinopril 20 mg daily and Crestor 5 mg at night REVIEW OF SYSTEMS: At the time of my exam: CONSTITUTIONAL: Denies fever or chills. HEENT: Denies blurred vision, vision changes, or eye pain. Denies hemoptysis CARDIOVASCULAR: Denies chest pain. Denies orthopnea. Denies PND. Denies pal pitations RESPIRATORY: Denies shortness of breath. GASTROINTESTINAL: Denies abdominal pain. Denies nausea or vomiting. HEMATOLOGIC: Denies bleeding disorders. GENITOURINARY: Denies any blood in urine. SKIN: Denies pruitis. Denies rash. PHYSICAL EXAM: VITAL SIGNS: Reviewed. GENERAL: Well-developed in no acute distress. HEENT: Head is normocephalic. Pupils are equal, round. Sclerae anicteric. Mucous membranes of the mouth are moist. Neck supple. No JVD or thyromegaly LUNGS: Respirations even and unlabored. Lungs essentially clear to auscultation bilaterally. HEART: Regular rate and rhythm. S1 and S2 heard. ABDOMEN: Soft. Nondistended. Nontender. EXTREMITIES: Normal range of motion. No clubbing or cyanosis. Peripheral pulses intact. No lower extremity edema NEUROLOGIC: Awake and alert. Oriented x 3. ASSESSMENT: Shortness of breath Chest pain, troponins negative 2 Right upper lobe lung mass Mediastinal lymphadenopathy Hypertension Hyperlipidemia COPD Diabetes Anxiety Depression Nicotine dependence PLAN: An acute coronary event has been ruled out Obtain 2-D echo to assess cardiac structure and function Resume home cardiac medications Patient to undergo dobutamine stress echo today If negative, patient may be discharged home today from a cardiac standpoint Nurse practitioner note has been reviewed by physician. Signing provider agrees with the documented findings, assessment, and plan of care. Past Medical History Past Medical History: COPD, Diabetes Mellitus, GERD/Reflux, Hyperlipidemia, Hypertension, Musculoskeletal Disorder Additional Past Medical History / Comment(s): SCOLIOSIS, HERNIATED DISC, BACK PAIN, STATES OCCASIONAL IRREGULAR HEART BEAT FROM SEROQUEL. History of Any Multi-Drug Resistant Organisms: None Reported Past Surgical History: Hernia Repair Additional Past Surgical History / Comment(s): colonoscopy, right inguinal hernia. Past Anesthesia/Blood Transfusion Reactions: No Reported Reaction Additional Past Anesthesia/Blood Transfusion Reaction / Comment(s): hard to arouse Past Psychological History: Anxiety, Depression Smoking Status: Current every day smoker, Heavy tobacco smoker Past Alcohol Use History: None Reported Past Drug Use History: None Reported - Past Family History Mother Family Medical History: No Reported History Medications and Allergies Home Medications Medication Instructions Recorded Confirmed Type Meloxicam [Mobic] 7.5 mg PO HS 01/02/15 04/23/23 History Hydrocodone/Acetaminophen [[place] 1 tab PO QID PRN 05/06/15 04/23/23 History 10-325] Gabapentin [Neurontin] 800 mg PO TID 03/15/16 04/23/23 History ALPRAZolam [Xanax] 0.25 mg PO BID PRN 04/30/22 04/23/23 History Albuterol Inhaler [Ventolin Hfa 1 puff INHALATION RT-Q4H PRN 04/30/22 04/23/23 History Inhaler] Cyclobenzaprine [Flexeril] 10 mg PO HS 04/30/22 04/23/23 History Famotidine [Pepcid] 20 mg PO BID 04/30/22 04/23/23 History Fenofibrate Nanocrystallized 145 mg PO DAILY 04/30/22 04/23/23 History [Fenofibrate] Fluticasone/Umeclidin/Vilanter 1 puff INHALATION RT-DAILY 04/30/22 04/23/23 History [Trelegy Ellipta 100-62.5-25] Levothyroxine Sodium [Synthroid] 50 mcg PO DAILY 04/30/22 04/23/23 History Mirtazapine 45 mg PO HS 04/30/22 04/23/23 History Multivitamins, Thera [Multivitamin 1 tab PO DAILY 04/30/22 04/23/23 History (formulary)] QUEtiapine FUMARATE [SEROquel] 200 mg PO HS 04/30/22 04/23/23 History Rosuvastatin Calcium [Crestor] 5 mg PO HS 04/30/22 04/23/23 History lisinopriL [Zestril] 20 mg PO DAILY 04/30/22 04/23/23 History metFORMIN HCL 500 mg PO DAILY 04/30/22 04/23/23 History Omeprazole [PriLOSEC] 40 mg PO AC-BRKFST #90 cap 05/05/22 04/23/23 Rx Pioglitazone [Actos] 30 mg PO DAILY 02/18/23 04/23/23 History Ergocalciferol [Vitamin D2 (1250 1,250 mcg PO ALBERTO 04/23/23 04/23/23 History Mcg = 55982 Iu)] Mupirocin 2% Oint [Bactroban 2% 1 applic TOPICAL DAILY 04/23/23 04/23/23 History Oint] Allergies Allergy/AdvReac Type Severity Reaction Status Date / Time Penicillins AdvReac Unknown Verified 04/23/23 07:07 Childhood Physical Exam Vitals: Vital Signs Temp Pulse Pulse Resp BP BP Pulse Ox 04/23/23 07:59 108 H 04/23/23 07:49 106 H 94 L 04/23/23 07:28 97.5 F L 91 18 117/69 92 L 04/23/23 06:28 98.1 F 78 16 110/64 96 04/23/23 04:00 86 16 112/61 96 04/23/23 03:14 88 04/23/23 03:06 87 04/23/23 01:17 98 16 115/64 95 04/23/23 00:01 97.5 F L 115 H 26 H 122/75 96 Intake and Output 04/22/23 04/23/23 04/23/23 22:59 06:59 14:59 Other: # Voids 1 Weight 120.202 kg Results 04/23/23 00:08 04/23/23 00:08 Cardiac Enzymes 04/23/23 04/23/23 04/23/23 Range/Units 00:08 00:08 06:54 AST 21 (17-59) U/L Troponin I <0.012 <0.012 (0.000-0.034) ng/mL Coagulation 04/23/23 Range/Units 00:08 PT 10.2 (9.0-12.0) sec APTT 26.2 (22.0-30.0) sec CBC 04/23/23 Range/Units 00:08 WBC 7.2 (3.8-10.6) k/uL RBC 3.40 L (4.30-5.90) m/uL Hgb 11.4 L (13.0-17.5) gm/dL Hct 34.1 L (39.0-53.0) % Plt Count 379 (150-450) k/uL Comprehensive Metabolic Panel 04/23/23 Range/Units 00:08 Sodium 134 L (137-145) mmol/L Potassium 4.9 (3.5-5.1) mmol/L Chloride 102 (98-107) mmol/L Carbon Dioxide 20 L (22-30) mmol/L BUN 21 H (9-20) mg/dL Creatinine 1.46 H (0.66-1.25) mg/dL Glucose 186 H (74-99) mg/dL Calcium 9.1 (8.4-10.2) mg/dL AST 21 (17-59) U/L ALT 16 (4-49) U/L Alkaline Phosphatase 50 (38-126) U/L Total Protein 6.8 (6.3-8.2) g/dL Albumin 4.1 (3.5-5.0) g/dL Current Medications Generic Name Dose Route Start Last Admin Trade Name Freq PRN Reason Stop Dose Admin Hydrocodone Bitart/Acetaminophen 1 each 04/23/23 08:59 Hydrocodone/Apap 10-325mg 1 Each Tab PO QID PRN Pain Albuterol Sulfate 2.5 mg 04/23/23 08:59 Albuterol Nebulized 2.5 Mg/3 Ml INHALATION RT-Q4H PRN Shortness Of Breath Albuterol/Ipratropium 3 ml 04/23/23 08:00 04/23/23 07:48 Ipratropium-Albuterol 3 Ml Neb INHALATION 3 ml RT-Q4H RICHARD Administration Alprazolam 0.25 mg 04/23/23 08:59 Alprazolam 0.25 Mg Tab PO BID PRN Anxiety Cyclobenzaprine HCl 10 mg 04/23/23 21:00 Cyclobenzaprine 10 Mg Tab PO HS [facility] Ergocalciferol 1,250 mcg 04/25/23 09:00 Ergocalciferol 1,250 Mcg (50,000 Iu) Capsule PO ALBERTO [facility] Famotidine 20 mg 04/23/23 09:00 Famotidine 20 Mg Tab PO BID RICHARD Fenofibrate 160 mg 04/23/23 10:00 Fenofibrate 160 Mg Tab PO DAILY [facility] Dobutamine HCl/Dextrose 500 mg 250 mls @ 36.061 mls/hr 04/23/23 07:44 / IV Solution IV 04/23/23 11:44 .Q6H56M PRN Per Protocol Protocol 10 MCG/KG/MIN Levothyroxine Sodium 50 mcg 04/23/23 09:00 Levothyroxine 50 Mcg Tab PO DAILY [facility] Lisinopril 20 mg 04/23/23 09:00 Lisinopril 20 Mg Tab PO DAILY [facility] Meloxicam 7.5 mg 04/23/23 21:00 Meloxicam 7.5 Mg Tab PO HS [facility] Methylprednisolone Sodium Succinate 40 mg 04/23/23 08:00 04/23/23 08:40 Methylprednisolone Sod Succi 40 Mg/Ml 1 Ml Vial IV 40 mg Q8HR RICHARD Administration Naloxone HCl 0.2 mg 04/23/23 04:52 Naloxone 0.4 Mg/Ml 1 Ml Vial IV Q2M PRN Opioid Reversal Non-Formulary Medication 1 puff 04/24/23 08:00 Fluticasone/Umeclidin/Vilanter [Trelegy Ellipta 100-62.5-25] INHALATION RT-DAILY [facility] Non-Formulary Medication 800 mg 04/23/23 09:00 Gabapentin [Neurontin] PO TID RICHARD Intake and Output 04/22/23 04/23/23 04/23/23 22:59 06:59 14:59 Other: # Voids 1 Weight 120.202 kg 04/23/23 00:08 04/23/23 00:08
[2023-04-23] MEDS ORDERED: DOBUTamine DRIP for NUC MED 500 MG/250 ML BAG IV ONE (09:30)
--- NOTE | 2023-04-23 10:25 | P.HPIM ---
History of Present Illness H&P Date: 04/23/23 Chief Complaint: Palpitation chest pain This is a 52-year-old male patient who presented here with concerns of palpitations and chest pain. Patient has been following with Dr. Camacho for possible workup with lung cancer. Patient has reported increasing shortness of breath.. Patient reports gross palpitations or chest pain at nighttime. Has been occurring over the past few days medical history of diabetes mellitus, hypertension and diabetes mellitus. CT of the chest performed showing no evidence of pulmonary embolism 0.5 cm cavity mass with posterior right upper lo be. Mild mediastinal lymphadenopathy,. Troponins negative 3. Creatinine slightly elevated at 1.46 this does appear patient's baseline bun 21. At this time cardiology and pulmonary services have been consulted. Stress test ordered per cardiology. Patient is resting comfortably in bed denies any chest pain at this time. Denies nausea vomiting or diarrhea. Denies any urinary burning or frequency Review of Systems please refer to HPI otherwise unremarkable Past Medical History Past Medical History: COPD, Diabetes Mellitus, GERD/Reflux, Hyperlipidemia, Hypertension, Musculoskeletal Disorder Additional Past Medical History / Comment(s): SCOLIOSIS, HERNIATED DISC, BACK PAIN, STATES OCCASIONAL IRREGULAR HEART BEAT FROM SEROQUEL. History of Any Multi-Drug Resistant Organisms: None Reported Past Surgical History: Hernia Repair Additional Past Surgical History / Comment(s): colonoscopy, right inguinal hernia. Past Anesthesia/Blood Transfusion Reactions: No Reported Reaction Additional Past Anesthesia/Blood Transfusion Reaction / Comment(s): hard to arouse Past Psychological History: Anxiety, Depression Smoking Status: Current every day smoker, Heavy tobacco smoker Past Alcohol Use History: None Reported Past Drug Use History: None Reported - Past Family History Mother Family Medical History: No Reported History Medications and Allergies Home Medications Medication Instructions Recorded Confirmed Type Meloxicam [Mobic] 7.5 mg PO HS 01/02/15 04/23/23 History Hydrocodone/Acetaminophen [[place] 1 tab PO QID PRN 05/06/15 04/23/23 History 10-325] Gabapentin [Neurontin] 800 mg PO TID 03/15/16 04/23/23 History ALPRAZolam [Xanax] 0.25 mg PO BID PRN 04/30/22 04/23/23 History Albuterol Inhaler [Ventolin Hfa 1 puff INHALATION RT-Q4H PRN 04/30/22 04/23/23 History Inhaler] Cyclobenzaprine [Flexeril] 10 mg PO HS 04/30/22 04/23/23 History Famotidine [Pepcid] 20 mg PO BID 04/30/22 04/23/23 History Fenofibrate Nanocrystallized 145 mg PO DAILY 04/30/22 04/23/23 History [Fenofibrate] Fluticasone/Umeclidin/Vilanter 1 puff INHALATION RT-DAILY 04/30/22 04/23/23 History [Trelegy Ellipta 100-62.5-25] Levothyroxine Sodium [Synthroid] 50 mcg PO DAILY 04/30/22 04/23/23 History Mirtazapine 45 mg PO HS 04/30/22 04/23/23 History Multivitamins, Thera [Multivitamin 1 tab PO DAILY 04/30/22 04/23/23 History (formulary)] QUEtiapine FUMARATE [SEROquel] 200 mg PO HS 04/30/22 04/23/23 History Rosuvastatin Calcium [Crestor] 5 mg PO HS 04/30/22 04/23/23 History lisinopriL [Zestril] 20 mg PO DAILY 04/30/22 04/23/23 History metFORMIN HCL 500 mg PO DAILY 04/30/22 04/23/23 History Omeprazole [PriLOSEC] 40 mg PO AC-BRKFST #90 cap 05/05/22 04/23/23 Rx Pioglitazone [Actos] 30 mg PO DAILY 02/18/23 04/23/23 History Ergocalciferol [Vitamin D2 (1250 1,250 mcg PO ALBERTO 04/23/23 04/23/23 History Mcg = 91027 Iu)] Mupirocin 2% Oint [Bactroban 2% 1 applic TOPICAL DAILY 04/23/23 04/23/23 History Oint] Allergies Allergy/AdvReac Type Severity Reaction Status Date / Time Penicillins AdvReac Unknown Verified 04/23/23 07:07 Childhood Physical Exam Vitals: Vital Signs Temp Pulse Pulse Resp BP BP Pulse Ox 04/23/23 07:59 108 H 04/23/23 07:49 106 H 94 L 04/23/23 07:28 97.5 F L 91 18 117/69 92 L 04/23/23 06:28 98.1 F 78 16 110/64 96 04/23/23 04:00 86 16 112/61 96 04/23/23 03:14 88 04/23/23 03:06 87 04/23/23 01:17 98 16 115/64 95 04/23/23 00:01 97.5 F L 115 H 26 H 122/75 96 Intake and Output 04/22/23 04/23/23 04/23/23 22:59 06:59 14:59 Other: # Voids 1 Weight 120.202 kg Head normocephalic Neck supple Lungs clear to auscultation bilaterally no wheezing or crackles Heart regular rate and rhythm S1-S2, no rub or gallop Abdomen is soft nontender nondistended positive bowel sounds no hepatosplenomegaly Extremities no edema Neuro alert and orientated to 3 Results CBC & Chem 7: 04/23/23 00:08 04/23/23 00:08 Labs: Abnormal Lab Results - Last 24 Hours (Table) 04/23/23 04/23/23 04/23/23 Range/Units 00:08 00:08 00:08 RBC 3.40 L (4.30-5.90) m/uL Hgb 11.4 L (13.0-17.5) gm/dL Hct 34.1 L (39.0-53.0) % MCV 100.4 H (80.0-100.0) fL RDW 16.3 H (11.5-15.5) % D-Dimer 0.65 H (<0.60) mg/L FEU Sodium 134 L (137-145) mmol/L Carbon Dioxide 20 L (22-30) mmol/L BUN 21 H (9-20) mg/dL Creatinine 1.46 H (0.66-1.25) mg/dL Glucose 186 H (74-99) mg/dL Assessment and Plan Assessment: 1. Shortness of breath 2. Chest pain. Troponins negative 3. Stress test cardiology 3. Right upper lobe pneumonia with mediastinal lymphadenopathy. Patient follows with Dr. Anguiano 4. History of COPD 5. History of essential hypertension 6. History of hyperlipidemia 7. History of anxiety 8. History of depression Cardiology and pulmonary services have been consulted 2-D echo ordered Cardiac stress test ordered Repeat labs ordered Time with Patient: Greater than 30 (Greater than 60% of the total time spent in counseling and coordination of care)
[2023-04-23] MEDS: lisinopriL 20 MG TAB PO SCH (11:33)
[2023-04-23] MEDS: GABAPENTIN 400 MG CAP PO SCH ×3 (11:33→20:50)
[2023-04-23] MEDS: FENOFIBRATE 160 MG TAB PO SCH (11:33)
[2023-04-23] MEDS: LEVOTHYROXINE 50 MCG TAB PO SCH (11:33)
[2023-04-23] MEDS: FAMOTIDINE 20 MG TAB PO SCH ×2 (11:33→20:50)
[2023-04-23 12:40] LABS: Glucose,Whole Blood 214 mg/dL (70-110)
--- NOTE | 2023-04-23 15:46 | CA ---
Transthoracic Echo Report Name: Brad Leonardo Age: 52 Gender: M : 1970 Exam Date: 04/23/2023 10:55 Exam Location: [facility] Ht (in): 61 Wt (lb): 265 Ordering Physician: Jeff Katz MD ([id number]) Attending/Referring Phys: Sterling WOMACK Nurse Epidemiologist Yoly Brown RDCS Procedure CPT: Indications: tachycardia chest pain Cardiac Hx: Technical Quality: Technically difficult study Contrast 1: Lumason Total Dose (mL): 4 Contrast 2: Total Dose (mL): MEASUREMENTS (Male / Female) Normal Values 2D ECHO LV Diastolic Diameter PLAX 4.2 cm 4.2 - 5.9 / 3.9 - 5.3 cm LV Systolic Diameter PLAX 2.6 cm IVS Diastolic Thickness 1.5 cm 0.6 - 1.0 / 0.6 - 0.9 cm LVPW Diastolic Thickness 1.3 cm 0.6 - 1.0 / 0.6 - 0.9 cm LV Relative Wall Thickness 0.7 RV Internal Dim ED PLAX 3.1 cm LA Volume 24.6 cm??? 18 - 58 / 22 - 52 cm??? M-MODE Aortic Root Diameter MM 3.6 cm LA Systolic Diameter MM 3.6 cm LA Ao Ratio MM 1.0 AV Cusp Separation MM 2.1 cm DOPPLER AV Peak Velocity 182.1 cm/s AV Peak Gradient 13.3 mmHg AV Mean Velocity 110.1 cm/s AV Mean Gradient 6.2 mmHg AV Velocity Time Integral 26.4 cm LVOT Peak Velocity 122.2 cm/s LVOT Peak Gradient 6.0 mmHg LVOT Velocity Time Integral 22.5 cm MV Area PHT 3.6 cm??? Mitral E Point Velocity 93.6 cm/s Mitral A Point Velocity 87.5 cm/s Mitral E to A Ratio 1.1 MV Deceleration Time 212.3 ms MV E' Velocity 7.0 cm/s Mitral E to MV E' Ratio 13.3 FINDINGS Left Ventricle Moderately increased left ventricular wall thickness. Left ventricular cavity size normal. Normal left ventricular systolic function with no obvious regional wall motion abnormalities. Left ventricular ejection fraction is estimated at 50-55 %. Right Ventricle Normal right ventricular size and function. Right ventricular systolic pressure within normal limits. Right Atrium Right atrium not well visualized. Left Atrium Normal left atrial size. Mitral Valve Structurally normal mitral valve. Mild mitral regurgitation. Aortic Valve No aortic valve stenosis or regurgitation. Tricuspid Valve Structurally normal tricuspid valve. Trace to mild tricuspid regurgitation. Pulmonic Valve Structurally normal pulmonic valve. Pericardium No pericardial effusion. Aorta Normal size aortic root and proximal ascending aorta. CONCLUSIONS Normal LV systolic function Mild mitral regurgitation Previewed by: Dr. Jeff Katz MD (Electronically Signed) Final Date: 23 April 2023 15:45
--- NOTE | 2023-04-23 15:48 | CA ---
Dobutamine Stress Echocardiogram Report Brad Leonardo Age: 52 Gender: M : 1970 Exam Date: 04/23/2023 10:13 Exam Location: [facility] Ordering Physician: Jeff Katz MD ([id number]) Referring Physician: Sterling WOMACK Dispatch Machine Runner: KYM Technologist: Ht (in): 71 Wt (lb): 265 Procedure CPT: Indication: chest pain tachycardia ICD-9 Codes: Rhythm: Patient History: Chest pain Cardiac Medications: Medications in past 24 hours: Contrast: Lumason Total Dose (mL): 5 Stress Results Protocol: Dobutamine Peak Dose (???g/kg/min): 30 Duration (min:sec): Atropine:(mg) Target HR: 141 Double Product: Resting HR: 102 Resting BP: 133 / 56 Peak HR: 146 Peak BP: 141 / 54 Max Predicted HR: 166 88 % Max Predicted HR Stress Summary: BP Response: Reason for Termination: Exceeded target heart rate (85% max predicted) Cardiac Symptoms: Test terminated after reaching target heart rate (85% max predicted) ECG Analysis Resting EKG: Normal sinus rhythm normal axis normal intervals Stress EKG: Patient was given intravenous dobutamine as per protocol achieving 85% of predicted maximum heart rate No significant ST segment depression Arrhythmia: No cardiac arrhythmia Echo Analysis Base Echo Analysis: Technically suboptimal study normal left ventricular size wall motion and systolic function intracardiac visualization enhanced by contrast Low Echo Anaylsis: Normal Peak Echo Analysis: Normal hyperdynamic response Recovery Echo: Normal MEASUREMENTS (Male/Female) Normal Values CONCLUSIONS Negative dobutamine stress echo Dr. Jeff Katz MD (Electronically Signed) Final Date: 23 April 2023 15:47
--- NOTE | 2023-04-23 16:16 | P.CNPUL ---
History of Present Illness Consult date: 04/23/23 Reason for consult: dyspnea, abnormal CXR/CT History of present illness: 52-year-old male patient was coming into the hospital because of worsening shortness of breath and COPD exacerbation. Is a chronic smoker. The patient is maintained on Trelegy Ellipta on outpatient basis. On a separate note, the patient is also known to have abnormal pulmonary cavitating lesion. This was originally identified on a low-dose CAT scan of the chest that was done on 01/11/2023 and the low-dose CAT scan showed a masslike consolidation in the posterior aspect of the right upper lobe abutting the fissure measuring 6.2 cm in size. The patient was also found to have moderate to severe emphysematous changes with some mild pulmonary fibrotic changes and mildly enlarged nonspecific precarinal lymph nodes. Based on those findings, the patient underwent a PET/CT on 03/19/2023. The PET scan showed again diffuse emphysematous changes bilaterally and the masslike consolidation was again noted and there was some mild metabolic uptake with an SUV of 3.51 and there was another 1.9 cm focal nodular lesion with an SUV of 3.08. Based on the limited metabolic activity inflammatory changes were favored although malignancy could not be excluded. Based on the presence of extensive emphysema and limited lung capacity, no biopsies were done. A repeat CAT scan of the chest was done during this current admission and this was a CT angiogram that showed no evidence of any pulmonary embolism. Therefore 0.5 cm cavitating mass was again seen in the posterior right upper lobe. There was evidence of mild mediastinal lymphadenopathy. No hemoptysis. No pleurisy. The patient is currently on methadone nebulized treatments [id number], is also on Symbicort and IV Solu-Medrol. His ability to count of 7.2 with a hemoglobin 11.4 and a platelet count of 379. BUN is 21 with a creatinine of 1.4. Troponins are negative. Review of Systems CONSTITUTIONAL: Denies fever or chills. HEENT: Denies blurred vision, vision changes, or eye pain. Denies hemoptysis CARDIOVASCULAR: Denies chest pain. Denies orthopnea. Denies PND. Denies palpitations RESPIRATORY: Increased shortness of breath and cough and congestion as mentioned above and the patient has chronic exertional dyspnea GASTROINTESTINAL: Denies abdominal pain. Denies nausea or vomiting. HEMATOLOGIC: Denies bleeding disorders. GENITOURINARY: Denies any blood in urine. SKIN: Denies pruitis. Denies rash. Past Medical History Past Medical History: COPD, Diabetes Mellitus, GERD/Reflux, Hyperlipidemia, Hypertension, Musculoskeletal Disorder Additional Past Medical History / Comment(s): SCOLIOSIS, HERNIATED DISC, BACK PAIN, STATES OCCASIONAL IRREGULAR HEART BEAT FROM SEROQUEL. History of Any Multi-Drug Resistant Organisms: None Reported Past Surgical History: Hernia Repair Additional Past Surgical History / Comment(s): colonoscopy, right inguinal hernia. testicular surg as a child Past Anesthesia/Blood Transfusion Reactions: No Reported Reaction Additional Past Anesthesia/Blood Transfusion Reaction / Comment(s): hard to arouse Past Psychological History: Anxiety, Depression Smoking Status: Current every day smoker, Heavy tobacco smoker Past Alcohol Use History: None Reported Additional Past Alcohol Use History / Comment(s): SMOKES 1 1/2 PPD, STARTED SMOKING AGE 12. Past Drug Use History: None Reported - Past Family History Mother Family Medical History: No Reported History Medications and Allergies Home Medications Medication Instructions Recorded Confirmed Type Meloxicam [Mobic] 7.5 mg PO HS 01/02/15 04/23/23 History Hydrocodone/Acetaminophen [[place] 1 tab PO QID PRN 05/06/15 04/23/23 History 10-325] Gabapentin [Neurontin] 800 mg PO TID 03/15/16 04/23/23 History ALPRAZolam [Xanax] 0.25 mg PO BID PRN 04/30/22 04/23/23 History Albuterol Inhaler [Ventolin Hfa 1 puff INHALATION RT-Q4H PRN 04/30/22 04/23/23 H istory Inhaler] Cyclobenzaprine [Flexeril] 10 mg PO HS 04/30/22 04/23/23 History Famotidine [Pepcid] 20 mg PO BID 04/30/22 04/23/23 History Fenofibrate Nanocrystallized 145 mg PO DAILY 04/30/22 04/23/23 History [Fenofibrate] Fluticasone/Umeclidin/Vilan[place] 1 puff INHALATION RT-DAILY 04/30/22 04/23/23 History [Trelegy Ellipta 100-62.5-25] Levothyroxine Sodium [Synthroid] 50 mcg PO DAILY 04/30/22 04/23/23 History Mirtazapine 45 mg PO HS 04/30/22 04/23/23 History Multivitamins, Thera [Multivitamin 1 tab PO DAILY 04/30/22 04/23/23 History (formulary)] QUEtiapine FUMARATE [SEROquel] 200 mg PO HS 04/30/22 04/23/23 History Rosuvastatin Calcium [Crestor] 5 mg PO HS 04/30/22 04/23/23 History lisinopriL [Zestril] 20 mg PO DAILY 04/30/22 04/23/23 History metFORMIN HCL 500 mg PO DAILY 04/30/22 04/23/23 History Omeprazole [PriLOSEC] 40 mg PO AC-BRKFST #90 cap 05/05/22 04/23/23 Rx Pioglitazone [Actos] 30 mg PO DAILY 02/18/23 04/23/23 History Ergocalciferol [Vitamin D2 (1250 1,250 mcg PO ALBERTO 04/23/23 04/23/23 History Mcg = 36908 Iu)] Mupirocin 2% Oint [Bactroban 2% 1 applic TOPICAL DAILY 04/23/23 04/23/23 History Oint] Allergies Allergy/AdvReac Type Severity Reaction Status Date / Time Penicillins AdvReac Unknown Verified 04/23/23 07:07 Childhood Physical Exam Vitals: Vital Signs Temp Pulse Pulse Resp BP BP Pulse Ox 04/23/23 15:48 110 H 04/23/23 15:36 111 H 04/23/23 14:06 97.8 F 110 H 18 104/63 88 L 04/23/23 14:00 110 H 18 04/23/23 11:32 110 H 04/23/23 11:21 109 H 04/23/23 08:00 18 04/23/23 07:59 108 H 04/23/23 07:49 106 H 94 L 04/23/23 07:28 97.5 F L 91 18 117/69 92 L 04/23/23 06:28 98.1 F 78 16 110/64 96 04/23/23 04:00 86 16 112/61 96 04/23/23 03:14 88 04/23/23 03:06 87 04/23/23 01:17 98 16 115/64 95 04/23/23 00:01 97.5 F L 115 H 26 H 122/75 96 Intake and Output 04/23/23 04/23/23 04/23/23 06:59 14:59 22:59 Intake Total 180 Balance 180 Intake: Oral 180 Other: # Voids 1 Weight 120.202 kg 120.202 kg The patient is calm and comfortable, not in acute respiratory distress GENERAL: Well-developed in no acute distress. HEENT: Head is normocephalic. Pupils are equal, round. Sclerae anicteric. Mucous membranes of the mouth are moist. Neck supple. No JVD or thyromegaly LUNGS: Respirations even and unlabored. Lungs show markedly diminished breath sounds bilaterally along with diffuse expiratory wheezing throughout the lung souza. Air entry is quite diminished related to his advanced and severe COPD. HEART: Regular rate and rhythm. S1 and S2 heard. ABDOMEN: Soft. Nondistended. Nontender. EXTREMITIES: Normal range of motion. No clubbing or cyanosis. Peripheral pulses intact. No lower extremity edema NEUROLOGIC: Awake and alert. Oriented x 3. Examination of the skin revealed no evidence of significant rashes, suspicious appearing nevi or other concerning lesions. Results - Laboratory Findings CBC and BMP: 04/23/23 00:08 04/23/23 00:08 PT/INR, D-dimer PT 10.2 sec (9.0-12.0) 04/23/23 00:08 INR 1.0 (<1.2) 04/23/23 00:08 D-Dimer 0.65 mg/L FEU (<0.60) H 04/23/23 00:08 Abnormal lab findings: Abnormal Labs 04/23/23 04/23/23 04/23/23 00:08 00:08 00:08 RBC 3.40 L Hgb 11.4 L Hct 34.1 L MCV 100.4 H RDW 16.3 H D-Dimer 0.65 H Sodium 134 L Carbon Dioxide 20 L BUN 21 H Creatinine 1.46 H Glucose 186 H POC Glucose (mg/dL) 04/23/23 12:36 RBC Hgb Hct MCV RDW D-Dimer Sodium Carbon Dioxide BUN Creatinine Glucose POC Glucose (mg/dL) 214 H - Diagnostic Findings Chest x-ray: image reviewed Assessment and Plan Plan: Acute exacerbation of chronic COPD. The patient has severe COPD with moderate to severe emphysematous changes mostly with upper lobe predominance and the patient is a chronic smoker. No evidence of any pneumonia. CT angiogram shows no evidence of any pulmonary embolism Right upper lobe posterior segment and be taking no other lesion, with limited uptake on previous PET/CT. Rule out possibility of a squamous cell carcinoma. The patient also has some nonspecific mediastinal lymphadenopathy. Please refer to the most recent PET/CT. Chronic dyspnea with acute worsening shortness of breath secondary to above Chronic smoker Hypertension Hyperlipidemia Diabetes mellitus Chronic anxiety/depression Plan Agree on the current management of COPD exacerbation Smoking cessation counseling was done I went over the CAT scan findings. Obviously there is a concern for malignancy in this patient despite a PET/CT that was done in March 2023 that favored inflammatory changes. I am going to consider bronchoscopy, antibiotic bronchoscopy on this patient later stage once his COPD is more stable. Continue Trelegy Ellipta from home if possible. If not, the patient can be maintained on Symbicort and bronchodilators and steroids Resume all medications We'll continue to follow Cardiology consultation Echo to be repeated
[2023-04-23] MEDS: HYDROcodone/APAP 10-325MG 1 EACH TAB PO PRN (16:56)
[2023-04-23 17:20] LABS: Glucose,Whole Blood 228 mg/dL (70-110)
[2023-04-23 20:44] LABS: Glucose,Whole Blood 256 mg/dL (70-110)
[2023-04-23] MEDS ORDERED: CYCLOBENZAPRINE 10 MG TAB PO SCH (21:00)
[2023-04-23] MEDS ORDERED: MELOXICAM 7.5 MG TAB PO SCH (21:00)
[2023-04-24] MEDS: HYDROcodone/APAP 10-325MG 1 EACH TAB PO PRN ×2 (00:09→07:39)
[2023-04-24] MEDS: methylPREDNISolone SOD SUCCI 40 MG/ML 1 ML VIAL IV SCH ×2 (00:09→07:39)
[2023-04-24] MEDS: IPRATROPIUM-ALBUTEROL 3 ML NEB INHALATION SCH ×2 (03:45→08:11)
[2023-04-24] MEDS: LEVOTHYROXINE 50 MCG TAB PO SCH (06:29)
[2023-04-24 07:21] LABS: Glucose,Whole Blood 225 mg/dL (70-110)
[2023-04-24 07:56] VITALS: BP 115/67; RESP 18; TEMP 98
[2023-04-24] MEDS ORDERED: SYMBICORT 80-4.5 MCG INHALER INHALATION SCH (08:00)
[2023-04-24 08:22] VITALS: PULSE 103
[2023-04-24] MEDS: GABAPENTIN 400 MG CAP PO SCH (08:50)
[2023-04-24] MEDS: FAMOTIDINE 20 MG TAB PO SCH (08:50)
[2023-04-24] MEDS: lisinopriL 20 MG TAB PO SCH (08:50)
[2023-04-24] MEDS: FENOFIBRATE 160 MG TAB PO SCH (08:50)
--- NOTE | 2023-04-24 11:19 | P.DS ---
Providers Date of admission: 04/23/23 05:00 Expected date of discharge: 04/24/23 Attending physician: Edvin Dotson Consults: 04/23/23 04:52 Consult Physician Urgent Consulting Provider: Hilario Chaves Consult Reason/Comments: copd exacerbation, lung mass Do you want consulting provider notified?: Yes Consult Physician Urgent Consulting Provider: [facility] Consult Reason/Comments: chest pain Do you want consulting provider notified?: Yes Primary care physician: [facility] Course: Diagnosis on discharge: 1. Shortness of breath, related to acute exacerbation of chronic obstructive pulmonary disease 2. Chest pain. Troponins negative 3. Stress test, patient was seen and cleared by cardiology cardiology, stress test negative 3. Right upper lobe pneumonia with mediastinal lymphadenopathy. Patient follows with Dr. Anguiano 4. History of COPD 5. History of essential hypertension 6. History of hyperlipidemia 7. History of anxiety 8. History of depression Hospital course: Brad Leonardo, is a 52-year-old male patient who presented here with concerns of palpitations and chest pain. Patient has been following with Dr. Camacho for possible workup with lung cancer. Patient has reported increasing shortness of breath.. Patient reports gross palpitations or chest pain at nighttime. Has been occurring over the past few days medical history of diabetes mellitus, hypertension and diabetes mellitus. CT of the chest performed showing no evidence of pulmonary embolism 0.5 cm cavity mass with posterior right upper lobe. Mild mediastinal lymphadenopathy,. Troponins negative 3. Creatinine slightly elevated at 1.46 this does appear patient's baseline bun 21. At this time cardiology and pulmonary services have been consulted. Stress test ordered per cardiology. Patient is resting comfortably in bed denies any chest pain at this time. Denies nausea vomiting or diarrhea. Denies any urinary burning or frequency On 04/24/2023 patient was seen and examined on the medical floor he is alert and oriented 3 in no apparent distress he reports improvement in his shortness of breath 6 minutes walk revealed pulse ox at 92% on room air no need for home oxygen at this time patient was evaluated by pulmonary and was cleared for discharge he was given a course of oral antibiotics and a course of steroids he will be followed in our office within a few days. Case was discussed with Dr. Chaves plan is to follow as outpatient for possible bronchoscopy in the next 1-2 weeks. Patient Condition at Discharge: Fair Plan - Discharge Summary Discharge Rx Participant: Yes New Discharge Prescriptions: New Ipratropium-Albuterol Nebulize [Duoneb 0.5 mg-3 mg/3 ml Soln] 3 ml INHALATION RT-Q4H each predniSONE 10 mg PO DIRECTED 12 Days #30 tab Doxycycline [Vibramycin] 100 mg PO BID 10 Days #20 cap Continue Meloxicam [Mobic] 7.5 mg PO HS Hydrocodone/Acetaminophen [[place] 10-325] 1 tab PO QID PRN PRN Reason: Pain Gabapentin [Neurontin] 800 mg PO TID Albuterol Inhaler [Ventolin Hfa Inhaler] 1 puff INHALATION RT-Q4H PRN PRN Reason: Shortness Of Breath Multivitamins, Thera [Multivitamin (formulary)] 1 tab PO DAILY Levothyroxine Sodium [Synthroid] 50 mcg PO DAILY Famotidine [Pepcid] 20 mg PO BID lisinopriL [Zestril] 20 mg PO DAILY Fluticasone/Umeclidin/Vilanter [Trelegy Ellipta 100-62.5-25] 1 puff INHALATION RT-DAILY Fenofibrate Nanocrystallized [Fenofibrate] 145 mg PO DAILY Pioglitazone [Actos] 30 mg PO DAILY Ergocalciferol [Vitamin D2 (1250 Mcg = 56057 Iu)] 1,250 mcg PO ALBERTO Mirtazapine 45 mg PO HS Cyclobenzaprine [Flexeril] 10 mg PO HS ALPRAZolam [Xanax] 0.25 mg PO BID PRN PRN Reason: Anxiety metFORMIN HCL 500 mg PO DAILY Rosuvastatin Calcium [Crestor] 5 mg PO HS QUEtiapine FUMARATE [SEROquel] 200 mg PO HS Omeprazole [PriLOSEC] 40 mg PO AC-BRKFST #90 cap Mupirocin 2% Oint [Bactroban 2% Oint] 1 applic TOPICAL DAILY Discharge Medication List Meloxicam [Mobic] 7.5 mg PO HS 01/02/15 [History] Hydrocodone/Acetaminophen [[place] 10-325] 1 tab PO QID PRN 05/06/15 [History] Gabapentin [Neurontin] 800 mg PO TID 03/15/16 [History] ALPRAZolam [Xanax] 0.25 mg PO BID PRN 04/30/22 [History] Albuterol Inhaler [Ventolin Hfa Inhaler] 1 puff INHALATION RT-Q4H PRN 04/30/22 [History] Cyclobenzaprine [Flexeril] 10 mg PO HS 04/30/22 [History] Famotidine [Pepcid] 20 mg PO BID 04/30/22 [History] Fenofibrate Nanocrystallized [Fenofibrate] 145 mg PO DAILY 04/30/22 [History] Fluticasone/Umeclidin/Vilanter [Trelegy Ellipta 100-62.5-25] 1 puff INHALATION RT-DAILY 04/30/22 [History] Levothyroxine Sodium [Synthroid] 50 mcg PO DAILY 04/30/22 [History] Mirtazapine 45 mg PO HS 04/30/22 [History] Multivitamins, Thera [Multivitamin (formulary)] 1 tab PO DAILY 04/30/22 [History] QUEtiapine FUMARATE [SEROquel] 200 mg PO HS 04/30/22 [History] Rosuvastatin Calcium [Crestor] 5 mg PO HS 04/30/22 [History] lisinopriL [Zestril] 20 mg PO DAILY 04/30/22 [History] metFORMIN HCL 500 mg PO DAILY 04/30/22 [History] Omeprazole [PriLOSEC] 40 mg PO AC-BRKFST #90 cap 05/05/22 [Rx] Pioglitazone [Actos] 30 mg PO DAILY 02/18/23 [History] Ergocalciferol [Vitamin D2 (1250 Mcg = 55160 Iu)] 1,250 mcg PO ALBERTO 04/23/23 [History] Mupirocin 2% Oint [Bactroban 2% Oint] 1 applic TOPICAL DAILY 04/23/23 [History] Doxycycline [Vibramycin] 100 mg PO BID 10 Days #20 cap 04/24/23 [Rx] Ipratropium-Albuterol Nebulize [Duoneb 0.5 mg-3 mg/3 ml Soln] 3 ml INHALATION RT-Q4H each 04/24/23 [Rx] predniSONE 10 mg PO DIRECTED 12 Days #30 tab 04/24/23 [Rx] Follow up Appointment(s)/Referral(s): Edvin Dotson MD [Primary Care Provider] - 1-2 days Hilario Chaves MD [STAFF PHYSICIAN] - 1 Week Patient Instructions/Handouts: Chest Pain (DC), Tachycardia (GEN)
[2023-04-24 11:48] LABS: Basophils # (A) 0.02 X 10*3/uL (0.00-0.10); Basophils % (A) 0.1 %; Eosinophils # (A) 0 X 10*3/uL (0.04-0.35); Eosinophils % (A) 0 %; HCT 32.1 % (39.6-50.0); HGB 10.7 d/dL (12.0-15.0); Lymphocytes # (A) 1.01 X 10*3/uL (0.90-5.00); Lymphocytes % (A) 4.8 %; MCH 32.1 pg (27.0-32.0); MCHC 33.3 d/dL (32.0-37.0); MCV 96.4 FL (80.0-97.0); Mean Platelet Volume 9.9 FL (9.5-12.2); Monocytes # (A) 0.56 X 10*3/uL (0.20-1.00); Monocytes % (A) 2.7 %; NRBC Per 100 WBC 0 X 10*3/uL (0.00-0.01); Neutrophils # (A) 19.18 X 10*3/uL (1.80-7.70); Neutrophils % (A) 91.7 %; Platelet Count 439 X 10*3/uL (140-440); RBC 3.33 X 10*6/uL (4.40-5.60); RDW 16.8 % (11.5-14.5); WBC 20.91 X 10*3/uL (4.50-10.00)
[2023-04-24 12:25] LABS: BUN/Creat Ratio 18.87 Ratio (12.00-20.00); Blood Urea Nitrogen 28.3 mg/dL (9.0-27.0); Calcium 9.4 mg/dL (8.7-10.3); Chloride 101 mmol/L (96-109); Glucose 206 mg/dL (70-110); Potassium 5.5 mmol/L (3.5-5.5); Sodium 133 mmol/L (135-145)
--- NOTE | 2023-04-24 12:49 | P.PN ---
Subjective Progress Note Date: 04/24/23 On today's evaluation, the patient is much improved and less short of breath is progressive spastic and wheezy. No nausea vomiting or diarrhea. No other complaints. The patient is hemodynamically stable. Objective - Vital Signs Vital signs: Vital Signs Temp 98 F 04/24/23 07:00 Pulse 103 H 04/24/23 08:21 Resp 18 04/24/23 07:00 BP 115/67 04/24/23 07:00 Pulse Ox 92 L 04/24/23 10:49 FiO2 Intake & Output 04/23/23 04/24/23 04/24/23 18:59 06:59 18:59 Intake Total 180 414 Balance 180 414 Weight 120.202 kg Intake: Oral 180 414 Other: Voiding Method Toilet # Voids 1 0 - Exam The patient is calm and comfortable, not in acute respiratory distress GENERAL: Well-developed in no acute distress. HEENT: Head is normocephalic. Pupils are equal, round. Sclerae anicteric. Mucous membranes of the mouth are moist. Neck supple. No JVD or thyromegaly LUNGS: Respirations even and unlabored. Lungs show markedly diminished breath sounds bilaterally along with diffuse expiratory wheezing throughout the lung souza. Air entry is quite diminished related to his advanced and severe COPD. HEART: Regular rate and rhythm. S1 and S2 heard. ABDOMEN: Soft. Nondistended. Nontender. EXTREMITIES: Normal range of motion. No clubbing or cyanosis. Peripheral pulses intact. No lower extremity edema NEUROLOGIC: Awake and alert. Oriented x 3. Examination of the skin revealed no evidence of significant rashes, suspicious appearing nevi or other concerning lesions. - Labs CBC & Chem 7: 04/24/23 06:25 04/24/23 06:25 Labs: Abnormal Lab Results - Last 24 Hours (Table) 04/23/23 04/23/23 04/24/23 Range/Units 17:18 20:43 06: WBC 20.91 H (4.50-10.00) X 10*3/uL RBC 3.33 L (4.40-5.60) X 10*6/uL Hgb 10.7 L (12.0-15.0) d/dL Hct 32.1 L (39.6-50.0) % MCH 32.1 H (27.0-32.0) pg RDW 16.8 H (11.5-14.5) % Neutrophils # 19.18 H (1.80-7.70) X 10*3/uL Eosinophils # 0 L (0.04-0.35) X 10*3/uL Sodium (135-145) mmol/L Carbon Dioxide (21.6-31.8) mmol/L BUN (9.0-27.0) mg/dL Est GFR (CKD-EPI) (>=60) Glucose (70-110) mg/dL POC Glucose (mg/dL) 228 H 256 H (70-110) mg/dL 04/24/23 04/24/23 Range/Units 06:25 07:09 WBC (4.50-10.00) X 10*3/uL RBC (4.40-5.60) X 10*6/uL Hgb (12.0-15.0) d/dL Hct (39.6-50.0) % MCH (27.0-32.0) pg RDW (11.5-14.5) % Neutrophils # (1.80-7.70) X 10*3/uL Eosinophils # (0.04-0.35) X 10*3/uL Sodium 133 L (135-145) mmol/L Carbon Dioxide 20.0 L (21.6-31.8) mmol/L BUN 28.3 H (9.0-27.0) mg/dL Est GFR (CKD-EPI) 55 L (>=60) Glucose 206 H (70-110) mg/dL POC Glucose (mg/dL) 225 H (70-110) mg/dL Assessment and Plan Plan: Acute exacerbation of chronic COPD. The patient has severe COPD with moderate to severe emphysematous changes mostly with upper lobe predominance and the patient is a chronic smoker. No evidence of any pneumonia. CT angiogram shows no evidence of any pulmonary embolism Right upper lobe posterior segment and be taking no other lesion, with limited uptake on previous PET/CT. Rule out possibility of a squamous cell carcinoma. The patient also has some nonspecific mediastinal lymphadenopathy. Please refer to the most recent PET/CT. Chronic dyspnea with acute worsening shortness of breath secondary to above Chronic smoker Hypertension Hyperlipidemia Diabetes mellitus Chronic anxiety/depression Plan Clinically much improved Discharge the patient home on a prednisone burst taper Smoking cessation counseling was done I went over the CAT scan findings. Obviously there is a concern for malignancy in this patient despite a PET/CT that was done in March 2023 that favored inflammatory changes. I am going to consider bronchoscopy, antibiotic bronchoscopy on this patient later stage once his COPD is more stable. Continue Trelegy Ellipta from home if possible. If not, the patient can be maintained on Symbicort and bronchodilators and steroids Resume all medications We'll continue to follow Cardiology consultation I'm going to see this patient in the office and discuss with him the possibility of a biopsy of the right lower lobe.
[2023-04-25] MEDS ORDERED: ERGOCALCIFEROL 1,250 MCG (50,000 IU) CAPSULE PO SCH (09:00)
== END 2023-04-24 11:43 | disposition home or self-care (01) ==
LOC: EC 23:59 → 6NMEDSUR 04-23 05:00
PROVIDERS: ADMIT Internal Medicine; ATTEND Internal Medicine
DX: J43.9 Emphysema, unspecified (principal); R59.0 Localized enlarged lymph nodes; R91.8 Other nonspecific abnormal finding of lung field; I10 Essential (primary) hypertension; E11.9 Type 2 diabetes mellitus without complications; E78.5 Hyperlipidemia, unspecified; R00.0 Tachycardia, unspecified; R00.2 Palpitations; K21.9 Gastro-esophageal reflux disease without esophagitis; M41.9 Scoliosis, unspecified; F32.A Depression, unspecified; F41.9 Anxiety disorder, unspecified; F17.210 Nicotine dependence, cigarettes, uncomplicated; Z79.1 Long term (current) use of non-steroidal anti-inflammatories (NSAID); Z79.51 Long term (current) use of inhaled steroids; Z79.890 Hormone replacement therapy; Z79.84 Long term (current) use of oral hypoglycemic drugs; Z79.899 Other long term (current) drug therapy; Z88.0 Allergy status to penicillin; Z98.890 Other specified postprocedural states; Z71.6 Tobacco abuse counseling
CPT/HCPCS: 96376 ×2; 96374; 99285; 36415; 94640 ×4; 94760; 93005; 93306; 93351; 85379; 83880; 80053; 80048; 84443; 83735; 84484; 85025 ×2; 85610; 85730; 71046; 71275; G0378 ×2; J1250; J2920 ×2; J2930; Q9950; Q9967

== ENCOUNTER → 2023-07-16 | Outpatient (CLI) | payer MEDICARE, OTHER ==
[2023-07-16 12:13] LABS: African American GFR (CKD) 71 (>60 ml/min/1.73 sqM); Blood Urea Nitrogen 14 mg/dL (9-20); Non-African American GFR(CKD) 62 (>60 ml/min/1.73 sqM)
--- NOTE | 2023-07-21 19:52 | CT ---
EXAMINATION TYPE: CT chest w con DATE OF EXAM: 07/16/2023 COMPARISON: 04/23/2023, 01/11/2023, 03/24/2018 HISTORY: 53-year-old male J18.1, lobar pneumonia, unspecified organism. TECHNIQUE: Contiguous axial scanning of the chest after the administration of 100 mL of Isovue 300. Coronal/sagittal reconstructions performed. CT DLP: 533.0mGycm. Automatic exposure control utilized for a dose reduction. FINDINGS: The heart is normal size without pericardial effusion. There is mild ectasia of the upper descending thoracic aorta 3.1 cm which is unchanged. A few scattered nonenlarged mediastinal lymph nodes are unchanged. Bullous emphysema in the upper lungs. Overall similar patchy opacity throughout the right upper lobe though decreased posterolateral aspect. Thick walled cavitary change posterior right upper lobe measures 5.0 x 2.2 cm versus 4.9 x 2.9 cm on 04/23/2023 and 6.2 x 3.3 cm on 01/11/2023. Visualized upper abdomen shows attenuation of the hepatic parenchyma ingesting fatty infiltration. Bones: Slight levoconvex curvature along the upper thoracic spine. IMPRESSION: Bullous emphysema in the upper lungs. Some patchy opacity at the posterior right upper lobe is overal l similar from 04/23/2023. Additional thick walled cavitary change here is relatively stable at 5 0 x 2.2 cm (versus 4.9 x 2.9 cm on 04/23/2023). Correlate for possible atypical fungal or mycobacterial in fection. Again, neoplasm not entirely excluded at this time. Ongoing follow-up advised.
== END | disposition home or self-care (01) ==
LOC: RADCTMAIN 11:27
PROVIDERS: ATTEND Internal Medicine Critical Care Medicine
DX: J18.1 Lobar pneumonia, unspecified organism (principal); J43.9 Emphysema, unspecified; R91.8 Other nonspecific abnormal finding of lung field
CPT/HCPCS: 82565; 84520; 71260; 36415; Q9967

== ENCOUNTER → 2023-09-29 | Outpatient (CLI) | payer MEDICARE, OTHER ==
--- NOTE | 2023-09-29 12:16 | XR ---
EXAMINATION TYPE: XR chest 2V DATE OF EXAM: 09/29/2023 COMPARISON: 04/23/2020 TECHNIQUE: PA and lateral views submitted. HISTORY: Cough FINDINGS: Emphysematous changes. Irregular density right upper lobe stable. Elevated left hemidiaphragm. Coarse shannon interstitium. Pleural thickening bilaterally. Arthropathy of the shoulders and degenerative cain e of the spine. IMPRESSION: 1. COPD with irregular nodular density is stable. Cavitary lesion was reported by recent CT scan amy elate clinically. 2. No acute process.
== END | disposition home or self-care (01) ==
LOC: RADXRMAIN 12:02
PROVIDERS: ATTEND Internal Medicine
DX: J44.9 Chronic obstructive pulmonary disease, unspecified (principal); J98.4 Other disorders of lung; R05.9 Cough, unspecified
CPT/HCPCS: 71046

== ENCOUNTER → 2023-12-21 | Outpatient (CLI) | payer MEDICARE, OTHER ==
[2023-12-21 10:38] LABS: African American GFR (CKD) >90 (>60 ml/min/1.73 sqM); Blood Urea Nitrogen 12 mg/dL (9-20); Non-African American GFR(CKD) >90 (>60 ml/min/1.73 sqM)
--- NOTE | 2023-12-21 15:33 | CT ---
EXAMINATION TYPE: CT abdomen pelvis w con CT DLP: 1694 mGycm, Automated exposure control for dose reduction was used. DATE OF EXAM: 12/21/2023 11:56 AM COMPARISON: CT abdomen pelvis most recent from 03/19/2023 CLINICAL INDICATION:Male, 53 years old with history of R10.31 RLQ PAIN; rlq pain/constipation TECHNIQUE: Axial CT abdomen pelvis w con;Sagittal and coronal reformats were created on a separate w orkstation. Contrast used:100 mL of Isovue 300 with IV Contrast, (none if empty) Oral contrast used: with Oral Contrast (none if empty) FINDINGS: LOWER CHEST: Unremarkable ABDOMEN LIVER: Unremarkable GALLBLADDER AND BILE DUCTS: Unremarkable. PANCREAS: Unremarkable. SPLEEN: Unremarkable. ADRENAL GLANDS: Unremarkable. KIDNEYS AND URETERS: No evidence of hydronephrosis or renal calculus. The ureters are unremarkable. PELVIS BLADDER: Unremarkable REPRODUCTIVE: Unremarkable. ABDOMEN & PELVIS STOMACH AND BOWEL: No evidence of bowel obstruction. The appendix is normal. There is redundant sigmo id colon. PERITONEUM/RETROPERITONEUM: No evidence of pneumoperitoneum or free fluid. VASCULATURE: No evidence of aortic aneurysm. MUSCULOSKELETAL: No acute osseous abnormalities LYMPH NODES: No gross evidence for lymphadenopathy. SOFT TISSUE/ABDOMINAL WALL: Fat stranding changes around the right inguinal canal no definitive herni a identified. Series 3 image 80. IMPRESSION: Fat stranding changes around the internal inguinal ring without herniated identified. Correlate with physical exam for right inguinal region pain. No evidence for appendicitis or obstructive uropathy. T he additional right lower quadrant process to correlate patient's pain.
== END | disposition home or self-care (01) ==
LOC: RADCTMAIN 10:00
PROVIDERS: ATTEND Internal Medicine
DX: R93.5 Abnormal findings on diagnostic imaging of other abdominal regions, including retroperitoneum (principal); K59.00 Constipation, unspecified; R10.31 Right lower quadrant pain
CPT/HCPCS: 82565; 84520; 74177; 36415; Q9967

== ENCOUNTER → 2024-02-07 | Outpatient (CLI) | payer MEDICARE, OTHER ==
[2024-02-07 12:23] LABS: African American GFR (CKD) >90 (>60 ml/min/1.73 sqM); Blood Urea Nitrogen 11 mg/dL (9-20); Non-African American GFR(CKD) >90 (>60 ml/min/1.73 sqM)
--- NOTE | 2024-02-07 16:19 | CT ---
EXAMINATION TYPE: CT chest w con DATE OF EXAM: 02/07/2024 COMPARISON: 07/16/2023 HISTORY: pneumonia CT DLP: 648 mGycm, Automated exposure control for dose reduction was used. CONTRAST: Performed injected with 100 mL of Isovue 300. TECHNIQUE: Axial images were obtained at 5 mm thick sections. Reconstructed images are reviewed on vLine computer in the coronal plane. FINDINGS: Portion of the thyroid visualized is normal. There is a 2.2 x 4.5 cm irregular density posterior right upper lobe lung field. This area was presen t previously. The previous cavitation has resolved. Emphysematous changes are present bilaterally. There is a 1.0 cm right hilar lymph node. No enlarged mediastinal adenopathy is present. The ascendi ng aorta diameter at the level of the main pulmonary artery is 2.9 cm. The main pulmonary artery mela meter at the bifurcation is 2.[address] sections are obtained through the upper abdomen. Abdomen is essentially unremarkable. IMPRESSION: 1. Persistent soft tissue density posterior right lung field. Previous cavitation is not identified. However, neoplasm is not excluded. Additional workup with PET CT is recommended. 2. Emphysematous changes to the lung souza. 3. Enlarged right hilar lymph node
== END | disposition home or self-care (01) ==
LOC: RADCTMAIN 11:35
PROVIDERS: ATTEND Internal Medicine Critical Care Medicine
DX: J98.4 Other disorders of lung (principal); R59.9 Enlarged lymph nodes, unspecified
CPT/HCPCS: 82565; 84520; 71260; 36415; Q9967

== ENCOUNTER → 2024-03-10 | Outpatient (CLI) | payer MEDICARE, OTHER ==
--- NOTE | 2024-03-10 12:14 | XR ---
EXAMINATION TYPE: XR knee complete LT DATE OF EXAM: 03/10/2024 COMPARISON: NONE HISTORY: Pain TECHNIQUE: Three views are submitted. FINDINGS: Mild medial compartment joint arthropathy with marginal spurring. These ossified along the upper suly in of the patella.. Osseous structures are intact. No acute fracture seen. IMPRESSION: 1. Mild osteoarthritis. 2. Enthesophyte at the quadriceps insertion of the patella.
== END | disposition home or self-care (01) ==
LOC: RADXRMAIN 11:46
PROVIDERS: ATTEND Internal Medicine
DX: M17.12 Unilateral primary osteoarthritis, left knee (principal)

== ENCOUNTER → 2024-08-21 | Outpatient (CLI) | payer MEDICARE, OTHER ==
[2024-08-21 13:15] LABS: African American GFR (CKD) >90 (>60 ml/min/1.73 sqM); Blood Urea Nitrogen 7 mg/dL (9-20); Non-African American GFR(CKD) >90 (>60 ml/min/1.73 sqM)
--- NOTE | 2024-08-21 14:03 | CT ---
EXAMINATION TYPE: CT chest w con CT DLP: 567.70 mGycm, Automated exposure control for dose reduction was used. DATE OF EXAM: 08/21/2024 1:35 PM COMPARISON: CT chest 02/07/2024, 07/16/2023, PET CT 03/09/2023 CLINICAL INDICATION:Male, 54 years old with history of J18.1 PNEUMONIA; PHH, SOB, PNEUMONIA, SPOT ON LUNG. TECHNIQUE: Multiple axial images were obtained through the chest following the administration of 100 cc of Isovue 300. . Coronal and sagittal reformats reviewed. FINDINGS: LUNGS/ PLEURA: No pleural effusion or pneumothorax. Moderate centrilobular and paraseptal emphysemato us changes. Stable 4.7 x 1.7 cm opacity within the posterior aspect of the right upper lung (series 4 , image 18). Development of right upper lung 1.4 cm nodular opacity (series 4, image 20). AIRWAY: Patent and unremarkable.. HEART: Size within normal limits. No pericardial effusion. MEDIASTINUM: No lymph nodes greater than 1 cm short axis. VASCULATURE: No aortic aneurysm. MUSCULOSKELETAL: No acute osseous abnormalities. No aggressive osseous lesion. SOFT TISSUES/LYMPH NODES: Unremarkable. LOWER NECK: No significant findings. UPPER ABDOMEN: Stable right renal 2.0 cm cyst. IMPRESSION: 1. Stable persistent posterior right upper lung irregular opacity with new adjacent right upper lung 1.4 cm opacity. Indeterminate appearance. Etiologies include infection/inflammation versus neoplasm. Further evaluation with PET/CT is recommended. 2. Emphysematous changes redemonstrated. [facility], , 08/21/2024 2:01 PM
== END | disposition home or self-care (01) ==
LOC: RADCTMAIN 12:35
PROVIDERS: ATTEND Internal Medicine Critical Care Medicine
CPT/HCPCS: 36415; 71260; 82565; 84520

== ENCOUNTER → 2025-01-01 | Outpatient (CLI) | payer MEDICARE, OTHER ==
--- NOTE | 2025-01-01 16:15 | XR ---
EXAMINATION TYPE: XR chest 2V DATE OF EXAM: 01/01/2025 3:56 PM COMPARISON: Chest radiographs from 09/29/2023, CT chest 08/21/2024 TECHNIQUE: XR chest 2V Frontal and lateral views of the chest. CLINICAL INDICATION:Male, 54 years old with history of J44.9 COPD J96.90 Resp failure; FINDINGS: Lungs/Pleura: There is flattening of the diaphragm with increased lucency of the lungs. No evidence o f pneumothorax, pleural effusion or focal consolidation. Chronic senescent parenchymal change. Right apical pleural-parenchymal scarring. Pulmonary vascularity: Unremarkable. Heart/mediastinum: Cardiomediastinal silhouette is unremarkable. Musculoskeletal: No acute osseous pathology. IMPRESSION: 1. No acute cardiopulmonary disease process. 2. COPD changes. [facility], , 01/01/2025 4:13 PM
== END | disposition home or self-care (01) ==
LOC: RADXRMAIN 15:41
PROVIDERS: ATTEND Internal Medicine Sleep Medicine
DX: J44.9 Chronic obstructive pulmonary disease, unspecified (principal); J96.90 Respiratory failure, unspecified, unspecified whether with hypoxia or hypercapnia
CPT/HCPCS: 71046

== ENCOUNTER → 2025-02-21 | Outpatient (CLI) | payer MEDICARE, OTHER ==
[2025-02-21 15:52] LABS: African American GFR (CKD) >90 (>60 ml/min/1.73 sqM); Blood Urea Nitrogen 10 mg/dL (9-20); Non-African American GFR(CKD) >90 (>60 ml/min/1.73 sqM)
--- NOTE | 2025-02-21 21:33 | CT ---
EXAMINATION TYPE: CT chest w con DATE OF EXAM: 02/21/2025 4:26 PM COMPARISON: 08/21/2024, 02/07/2024 CLINICAL INDICATION: Male, 54 years old with history of J18.1 LOBAR PNEUMONIA, F/u for Lobar pneumoni a. TECHNIQUE: Axial images were obtained at 5 mm thick sections. Reconstructed images are reviewed on NCR computer in the coronal plane. Contrast used:100 ml mL of Isovue 300 with IV Contrast, (none if empty) Oral contrast used: (none if empty) CT DLP: 541.5 mGycm, Automated exposure control for dose reduction was used. FINDINGS: Portion of the thyroid visualized is normal. There is a 1.8 x 4.9 cm density in the posterior right upper lung field. This was present previously. Additional nodules present previously are not identified currently. Extensive emphysematous changes are present. No enlarged mediastinal or hilar adenopathy is evident. Scattered shotty lymphadenopathy is present . The ascending aorta diameter at the level of the main pulmonary artery is 3.0 cm. The main pulmona ry artery diameter at the bifurcation is 2.2 cm. No significant coronary artery calcifications. Limited CT sections are obtained through the upper abdomen. Abdomen is essentially unremarkable. IMPRESSION: 1. Stable appearance of a posterior right upper lobe density. There is no radiographic documentation this has been worked up. Stability suggests more likely a benign process but does not eliminate possi ble neoplasm. [facility], , 02/21/2025 9:31 PM
== END | disposition home or self-care (01) ==
LOC: RADCTMAIN 15:17
PROVIDERS: ATTEND Internal Medicine Critical Care Medicine
DX: J18.1 Lobar pneumonia, unspecified organism (principal)
CPT/HCPCS: 82565; 84520; 71260; 36415; Q9967